=== PATIENT | female | born 1930 | race Caucasian/White ===

== ENCOUNTER 2016-07-23 09:53 | Inpatient (IN) | payer OTHER ==
[~2016-07-23] VITALS: Ht 162.6 cm; Wt 58.0 kg
[~2016-07-23 09:53] MED LIST: ALBINS INH; ALBUAER19 INH; CLON1TAB3 PO; DSY50 PO; FLUT110A INH; LEVO100T PO; LVQ500 PO; PRED-301 PO; SIMV40TA2 PO; SPRIN INH
[2016-07-23] MEDS ORDERED: HYDROCODONE/ACETAMOPHEN 5/325MG TAB PO STA (10:33)
[2016-07-23] MEDS ORDERED: AMPICILLIN/SULBACTAM SOD INJ 3,000 MG in SODIUM CHLORIDE 0.9% 100ML 100 ML IV ONE (10:45)
[2016-07-23] MEDS ORDERED: ALPR-411 PO (10:49)
[2016-07-23] MEDS ORDERED: PARO30TA4 PO (10:49)
--- NOTE | 2016-07-23 11:04 | DIAGNOSTIC IMAGING REPORT ---
WRIST MIN 3 VIEWS ROUTINE CLINICAL HISTORY: Right wrist pain. Cat bite. COMPARISON: None. DISCUSSION: The bones are osteopenic. No fractures or dislocations are visualized. No destructive lesions are visualized. There is dorsal soft tissue swelling. No foreign bodies are visualized. IMPRESSION: Dorsal soft tissue swelling. No fractures or destructive lesions are visualized. No radiopaque foreign bodies are evident Electronically signed by: Kong Patel M.D. 07/23/2016 11:02 AM
--- NOTE | 2016-07-23 11:53 | EMERGENCY ROOM VISIT NOTE ---
ED Visit Note First contact with patient: 10:24 I have personally seen and evaluated the patient with the physician mortgage loan assistant. I agree with the diagnostic/management decisions and have personally been involved in these decisions and agree with the diagnosis.
--- NOTE | 2016-07-23 12:13 | EMERGENCY ROOM VISIT NOTE ---
ED Visit Note First contact with patient: 10:24 CHIEF COMPLAINT: Infected cat bite of the right wrist that occurred last evening HISTORY OF PRESENT ILLNESS: Patient is an 85-year-old white female who presents to emergency department by BLS ambulance for evaluation of a cat bite to her right wrist that she sustained last evening. She was bitten by her own indoor house cat around 8 PM last night. She states that she cleansed the area with soap and water and applied Neosporin. She began to notice increased pain, redness and swelling overnight. The throbbing kept her awake. She reports a history of a similar cat bite in November of this year which required hospitalization. She responded to IV antibiotics and did not require surgery. She has not had a fever. She denies any drainage or discharge from the area. She reports that her tetanus is up-to-date, and the cat's rabies vaccinations are current. She rates her discomfort a 4/10. REVIEW OF SYSTEMS: Review of systems as per HPI. All other systems reviewed were negative. 10 systems reviewed. PMH: Electronic medical records are reviewed and summarized as above/below. See Problem List. SOCIAL HISTORY: Patient living at home. PHYSICAL EXAM: Vital Signs: Reviewed Nurse's notes. CONSTITUTIONAL: Patient is an elderly 85-year-old white female who was awake and alert and resting on the gurney in no acute distress. She is on nasal cannula oxygen. HEART: Regular rate and rhythm. LUNGS: Breath sounds are diminished, but clear to auscultation without any adventitious sounds. EXTREMITIES: Examination of the right wrist show 2 scabbed over puncture wounds on the dorsal aspect of the wrist. She has circumferential soft tissue swelling , erythema and increased warmth noted over the wrist, extending into the hand to the MCP joints, and swelling extending to the mid forearm. She has lymphangitic streaking noted to the elbow. Her wrist is tender to palpation. She can wiggle and move her fingers, but has pain in her breast. She has discomfort with wrist range of motion. Capillary refills less than 2 seconds. Radial and ulnar pulses are easily palpable. Sensation light touch is intact. EMERGENCY DEPARTMENT COURSE: X-rays of the right wrist were obtained. Patient was given [place] one tablet orally for pain. IV access was obtained and she was given Unasyn 3 g IV. X-rays showed soft tissue swelling. No evidence for acute bony abnormality. On exam, her findings are more consistent with cellulitis, and inflammation and local irritation from the cat bite, rather than a septic joint or drainable abscess. She does not have exam findings consistent with infectious tenosynovitis. Initially, the patient had expressed that she wanted to go home on oral medications, however after reviewing her findings with her, she preferred to stay in the hospital for further IV antibiotics, particularly given her poor outcome earlier this year. Patient was reviewed with the validation manager, and discussed with the [facility] service for further care and management. WRIST MIN 3 VIEWS ROUTINE CLINICAL HISTORY: Right wrist pain. Cat bite. COMPARISON: None. DISCUSSION: The bones are osteopenic. No fractures or dislocations are visualized. No destructive lesions are visualized. There is dorsal soft tissue swelling. No foreign bodies are visualized. IMPRESSION: Dorsal soft tissue swelling. No fractures or destructive lesions are visualized. No radiopaque foreign bodies are evident Problem List Medical Problems: (1) Anemia Status: Resolved (2) Cholelithiasis Status: Chronic (3) CKD (chronic kidney disease), stage III Status: Chronic (4) COPD, moderate Permanent Comment: on 2L O2 Status: Chronic (5) Depression Status: Chronic (6) DM type 2 (diabetes mellitus, type 2) Permanent Comment: A1C 5.9 in 06/2014 Status: Chronic (7) Dyslipidemia Status: Chronic (8) Generalized anxiety disorder Status: Chronic (9) History of renal stone Status: Chronic (10) Hypothyroidism Status: Chronic (11) Neutropenic fever Status: Resolved (12) Osteoporosis Status: Chronic (13) Pancytopenia Permanent Comment: ? secondary to myelo dysplastic syndrome Status: Chronic (14) Raynauds syndrome Status: Chronic (15) SIRS (systemic inflammatory response syndrome) Status: Resolved (16) Tobacco abuse Status: Chronic (17) Vitamin D deficiency Status: Chronic Surgical Problems: (1) History of cataract surgery Status: Resolved (2) History of open reduction and internal fixation (ORIF) procedure Permanent Comment: ORIF left humerus fracture 2010 Status: Resolved (3) History of parotid gland removal Permanent Comment: 2010, benign Status: Resolved (4) Hx of tubal ligation Status: Resolved Current/Historical Medications Scheduled Alprazolam (Alprazolam), 1 TAB PO TID Aspirin (Aspirin EC Low Dose), 81 MG PO DAILY Levothyroxine Sodium (Synthroid), 100 MCG PO DAILY Multiple Vitamin (Multivitamin), 1 TAB PO DAILY Paroxetine (Paroxetine HCl), 1 TAB PO DAILY Prednisone (Prednisone), 5 MG PO DAILY Simvastatin (Zocor), 40 MG PO QPM Tiotropium [place] (Spiriva Handihaler), 18 MCG INH DAILY Trazodone Hcl (Desyrel *), 50 MG PO HS Scheduled PRN Albuterol Inhaler (Ventolin Inhaler), 2 PUFFS INH BID PRN for SOB/Wheezing Albuterol Sulf (Albuterol Sulfate), 1 DOSE INH Q4 PRN for Wheezing Allergies Coded Allergies: Niacin (Verified Allergy, Unknown, 07/23/16) Vital Signs Date Time Temp Pulse Resp B/P Pulse Ox O2 Delivery O2 Flow Rate FiO2 07/23/16 12:38 67 20 112/52 95 Nasal Cannula 2.0 07/23/16 10:01 36.8 86 20 125/66 93 Nasal Cannula 2.0 Medications Administered Medications (Trade) Dose Ordered Sig/Kathryn Route Start Time Stop Time Status Last Admin Dose Admin Ampicillin Sodium/ Sulbactam Sodium/ Sodium Chloride (Unasyn Inj/Nss 100ml) 108 ml @ 200 mls/hr ONE ONCE IV 07/23/16 10:45 07/23/16 11:17 DC 07/23/16 11:13 200 MLS/HR Acetaminophen/ Hydrocodone Bitart ([place] 5/325 Tab) 1 tab NOW STAT PO 07/23/16 10:33 07/23/16 10:37 DC 07/23/16 10:43 1 TAB Departure Information Impression Primary Impression: Cellulitis of right arm Additional Impression: Cat bite involving extremity Referrals Christiano Howell M.D. (PCP) Patient Instructions A Signature Page, My [facility]
[2016-07-23] MEDS ORDERED: ONDANSETRON INJ 2 MG/ML 2 ML VIAL IV PRN (13:15)
[2016-07-23] MEDS ORDERED: ACETAMINOPHEN 325 MG TAB PO PRN (13:15)
[2016-07-23] MEDS ORDERED: SPRIN INH (13:23)
[2016-07-23] MEDS ORDERED: NICOTINE 14 MG/24 HR TDSY TD ONE (13:32)
[2016-07-23] MEDS ORDERED: MULTTAB58 PO (13:43)
[2016-07-23] MEDS ORDERED: ALBUTEROL 0.083% NEBU SOLN 3 ML VIAL INH STA (13:43)
[2016-07-23] MEDS ORDERED: ASPEC81 PO (13:43)
[2016-07-23] MEDS ORDERED: ALBUTEROL HFA 8 GM INHALER INH PRN (13:45)
[2016-07-23] MEDS ORDERED: ALBUTEROL 0.083% NEBU SOLN 3 ML VIAL INH PRN (13:45)
[2016-07-23 13:55] VITALS: Ht 162.6 cm; Wt 58.0 kg
[2016-07-23] MEDS: ALPRAZOLAM 0.5 MG TAB PO SCH ×2 (13:59→18:39)
--- NOTE | 2016-07-23 14:21 | History and Physical ---
History & Physical Date & Time of Service: Jul 23, 2016 at 13:26 Chief Complaint: Cat Bite/ Rt Wrist Primary Care Physician: Christiano Howell M.D. History of Present Illness Source: patient This is an 85 y/o female with PMH of myelodysplastic syndrome, DM type 2 diet controlled, COPD on home oxygen HS, current smoker, and other problems listed below who presents to the ED s/p cat bite. Patient reports cat bite occurred yesterday evening. She washed it with soap and water and applied Neosporin. Then overnight she developed pain, swelling, and erythema of the right wrist and dorsal hand. Pain is rated 10/10. She states [place] helped minimally but still having severe pain. Pain worsens with ROM of the wrist. The lesions have scabbed and there is no open area/drainage. No fevers or chills. No numbness or weakness of RUE. She is feeling generally weak today. She ambulates with a walker at home. Denies worsening of chronic cough productive of clear sputum. Patient was SOB ambulating to the restroom in ER. Denies worsening SOB/ wheezing from baseline. No chest pain, GI or urinary symptoms. Past Medical/Surgical History Medical Problems: (1) Anemia Status: Resolved (2) Cholelithiasis Status: Chronic (3) CKD (chronic kidney disease), stage III Status: Chronic (4) COPD, moderate Permanent Comment: on 2L O2 Status: Chronic (5) Depression Status: Chronic (6) DM type 2 (diabetes mellitus, type 2) Permanent Comment: A1C 5.9 in 06/2014 Status: Chronic (7) Dyslipidemia Status: Chronic (8) Generalized anxiety disorder Status: Chronic (9) History of renal stone Status: Chronic (10) Hypothyroidism Status: Chronic (11) Neutropenic fever Status: Resolved (12) Osteoporosis Status: Chronic (13) Pancytopenia Permanent Comment: ? secondary to myelo dysplastic syndrome Status: Chronic (14) Raynauds syndrome Status: Chronic (15) SIRS (systemic inflammatory response syndrome) Status: Resolved (16) Tobacco abuse Status: Chronic (17) Vitamin D deficiency Status: Chronic Surgical Problems: (1) History of cataract surgery Status: Resolved (2) History of open reduction and internal fixation (ORIF) procedure Permanent Comment: ORIF left humerus fracture 2010 Status: Resolved (3) History of parotid gland removal Permanent Comment: 2011, benign Status: Resolved (4) Hx of tubal ligation Status: Resolved Family History Heart disease FATHER Stroke MOTHER Social History Smoking Status: Current Every Day Smoker (1/2 ppd. smoking cessation advised. ) Alcohol Use: none Marital Status: Housing status: lives with family (with son) Occupational Status: retired Immunizations History of Influenza Vaccine: Yes Influenza Vaccine Date: Apr 18, 2014 History of Tetanus Vaccine?: Yes Tetanus Immunization Date: December 09, 2004 History of Pneumococcal: Yes Pneumococcal Date: Jul 07, 2014 History of Hepatitis B Vaccine: No Multi-Drug Resistant Organisms History of MDRO: No Allergies Coded Allergies: Niacin (Verified Allergy, Unknown, 07/23/16) Home Medications Scheduled Alprazolam (Alprazolam), 1 TAB PO TID Aspirin (Aspirin EC Low Dose), 81 MG PO DAILY Levothyroxine Sodium (Synthroid), 100 MCG PO DAILY Multiple Vitamin (Multivitamin), 1 TAB PO DAILY Paroxetine (Paroxetine HCl), 1 TAB PO DAILY Prednisone (Prednisone), 5 MG PO DAILY Simvastatin (Zocor), 40 MG PO QPM Tiotropium [place] (Spiriva Handihaler), 18 MCG INH DAILY Trazodone Hcl (Desyrel *), 50 MG PO HS Scheduled PRN Albuterol Inhaler (Ventolin Inhaler), 2 PUFFS INH BID PRN for SOB/Wheezing Albuterol Sulf (Albuterol Sulfate), 1 DOSE INH Q4 PRN for Wheezing Review of Systems Constitutional: + weakness (generalized), No chills, No fever ENT: No nasal symptoms Respiratory: + cough (no change from baseline), + problem reported (+ dyspnea on ambulating to restroom. denies worsening dyspnea/ wheezing from baseline), + sputum (clear) Cardiovascular: No chest pain Abdomen: No diarrhea, No nausea, No pain, No vomiting Musculoskeletal: + joint pain (right wrist pain with ROM) Genitourinary - Female: No dysuria, No urinary frequency, No urinary urgency Neurologic: + problem reported (no focal weakness of RUE), No numbness/tingling Psychiatric: + anxiety (controlled with alprazolam ) Hematologic / Lymphatic: + abnormal bleeding/bruising (bruises easily- scattered bruising spontaneous- denies trauma. denies abnormal bleeding including epistaxis, gum bleeding, GI bleeding) Integumentary: + color change, + new/changing skin lesions Physical Exam Vital Signs Date Time Temp Pulse Resp B/P Pulse Ox O2 Delivery O2 Flow Rate FiO2 07/23/16 12:38 67 20 112/52 95 Nasal Cannula 2.0 07/23/16 10:01 36.8 86 20 125/66 93 Nasal Cannula 2.0 General Appearance: WD/WN, no apparent distress, + pertinent finding (acutely ill appearing 85 year old female) Head: normocephalic, atraumatic Eyes: normal inspection, PERRL, EOMI ENT: pharynx normal, + pertinent finding (hard of hearing) Neck: supple Respiratory/Chest: no respiratory distress, no accessory muscle use, + pertinent finding (moderate wheezing present throughout) Cardiovascular: regular rate, rhythm, no murmur Abdomen/GI: normal bowel sounds, non tender, soft Extremities/Musculoskelatal: no pedal edema, + pertinent finding (right wrist joint is swollen, tender and limited ROM due to pain. MCP and PCP joints nontender and ROM intact.) Neurologic/Psych: alert, normal mood/affect, oriented x 3, + pertinent finding (generally weak but no motor deficit on gross exam) Skin: warm/dry, + pertinent finding (2 scabbed punctate lesions on dorsal aspect of right wrist. no drainage. + erythema, warmth, swelling, and tenderness of dorsal wrist and dorsal hand. has streaking up the forearm. no fluctuant area. also has scattered ecchymosis noted on left upper chest and bilateral LE) Diagnostics Laboratory Results Results Past 24 Hours Test 07/23/16 12:27 Range/Units Microbiology Results 07/23/16 Blood Culture, Paramjit Batch Pending 07/23/16 Blood Culture, Paramjit Batch Pending Diagnostic Radiology WRIST MIN 3 VIEWS ROUTINE CLINICAL HISTORY: Right wrist pain. Cat bite. COMPARISON: None. DISCUSSION: The bones are osteopenic. No fractures or dislocations are visualized. No destructive lesions are visualized. There is dorsal soft tissue swelling. No foreign bodies are visualized. IMPRESSION: Dorsal soft tissue swelling. No fractures or destructive lesions are visualized. No radiopaque foreign bodies are evident Impression Assessment and Plan RIGHT UPPER EXTREMITY CELLULITIS S/P CAT BITE 07/12/2016 Afebrile, no tachycardia, no hypotension; + leukopenia (chronic- was 2.67 on recent OP labs -> 1.73 today), + thrombocytopenia (chronic- plt 42 as OP -> 31 today); + CRP elevated Has underlying DM 2- diet controlled with last A1c 5.9 on 12/22/2015 Right wrist x-ray- Dorsal soft tissue swelling. No fractures or destructive lesions are visualized. No radiopaque foreign bodies are evident Check blood cultures; no open area or drainage for wound culture Received empiric Unasyn in ER- will continue Concern for wrist joint involvement- Dr. Perales consulted and saw her in ER; appreciate input; will obtain MRI and continue antibiotics; if needs washout pending MRI results would be done tomorrow morning or Monday Pain control with PRN morphine and elevate extremity COPD/ CHRONIC RESPIRATORY FAILURE Has wheezing on exam; was borderline hypoxic to 90 on her usual 2 liters once on floor Will check CXR to r/o pneumonia Continue chronic prednisone and chronic supplemental O2 Duoneb treatments Continue Spiriva PANCYTOPENIA/ MYELODYSPLASTIC SYNDROME S/p bone marrow biopsy Follows with Dr. Farrell WBC 2.67 on recent OP labs -> 1.73 today), platelets 42 as OP -> 31 today); neutrophils 0.87- similarly low in Dec-January 2016 when admitted for neutropenic fever & received Neupogen Monitor CBC CHRONIC THROMBOCYTOPENIA Platelet count 40s on last outpatient labs early June; platelets 31 today Denies bleeding Avoid anticoagulants DM TYPE 2 Diet controlled with last A1c 5.9 on 12/22/2015; will update A1c in am Monitor BSG AC HS Diabetic diet CKD STAGE III Baseline Cr 1.3 PRP pending ANXIETY Continue alprazolam HYPOTHYROIDISM Continue levothyroxine DYSLIPIDEMIA Continue statin CHRONIC SMOKER Cessation advised Nicotine patch ordered DVT PROPHYLAXIS SCD's No anticoagulant due to chronic thrombocytopenia DISPOSITION Med/ surg admission. PT/ OT consulted for generalized weakness. Follows with Dr. Howell for primary care. Attending Addendum: I have evaluated the patient and agree with the note above. A CXR did not reveal any active disease. Clinically, I feel she is at her baseline COPD status, on home oxygen with no increase in coughing, dyspnea or sputum change. She will cont her home prednisone dose, Duonebs as inpatient and home oxygen. Her right wrist is causing her significant discomfort and anxiety. She is requiring high doses of morphine for her body weight. She initially declined the MRI and then underwent it with TLC from the nursing staff and some Xanax. MRI was revealing for fluid in the joint space and no osteomyelitis. Per Ortho surgeon's instructions, will make her NPO p MN for possible procedure in AM. Cont broad spectrum abx at this time. Line drawn around redness which has not extended for several hours. Pt is not septic at this time. Cont to monitor closely. Sri Garcia DO Hospitalist Level of Care Med/Surg Advanced Directives Existing Advance Directive: Yes Resuscitation Status DO NOT RESUSCITATE VTE Prophylaxis VTE Risk Assessment Done? Y/N: Yes Risk Level: High Given or contraindicated: SCD's, Contraindicated
[2016-07-23 15:00] VITALS: BP 106/66; PULSE 78; TEMP 37.3; O2SAT 95
[2016-07-23] MEDS: MoRPHine SULFATE 2 MG/ML CARP IV PRN ×2 (15:27→20:45)
[2016-07-23 15:33] LABS: BUN/CREATININE RATIO 16.4 (10-20); C-REACTIVE PROTEIN 4.82 mg/dl (0-0.29); CALCIUM 8.3 mg/dl (8.5-10.1); MAGNESIUM 1.8 mg/dl (1.8-2.4); POTASSIUM 4.5 mmol/L (3.5-5.1)
[2016-07-23 15:36] LABS: HEMATOCRIT 30.7 % (37-47); MEAN CORPUSCULAR HEMOGLOBIN 35.9 pg (25-34); MEAN CORPUSCULAR HGB CONC 33.6 g/dl (32-36); MEAN PLATELET VOLUME 10.7 fL (7.4-10.4); PLATELET COUNT 31 K/uL (130-400); RED BLOOD COUNT 2.87 M/uL (4.2-5.4); WHITE BLOOD COUNT 1.73 K/uL (4.8-10.8)
[2016-07-23] MEDS ORDERED: AMPICILLIN/SULBACTAM CONSULT ACTIVE PRN ×2 (15:47)
[2016-07-23 15:49] LABS: COMPLETE YES; EOS % 1.2 %; LYMPH % 47.4 %; LYMPH ABS # 0.82 K/uL (1.2-3.4); MONO % 1.2 %; NEUT % 50.2 %; OVALOCYTES 2+
[2016-07-23] MEDS: ALBUT/IPRATROP 3MG/0.5MG NEB 3 ML VIAL INH SCH ×2 (16:00→20:12)
[2016-07-23 16:42] VITALS: PULSE 81; O2SAT 90
[2016-07-23] MEDS ORDERED: MoRPHine SULFATE 4 MG/ML 1 ML CARP\\VIAL IV STA (16:59)
[2016-07-23] MEDS: AMPICILLIN/SULBACTAM SOD INJ 3,000 MG in SODIUM CHLORIDE 0.9% 100ML 100 ML IV SCH ×2 (17:40→23:50)
--- NOTE | 2016-07-23 18:00 | DIAGNOSTIC IMAGING REPORT ---
CHEST ONE VIEW PORTABLE CLINICAL HISTORY: wheezing and rhonci in patient with COPD on home oxygen COMPARISON STUDY: 02/03/2016 FINDINGS: The cardiac and mediastinal contours are normal. There is no evidence of focal pulmonary consolidation. There is no evidence of failure. No pleural effusions are visualized.[ The chest has an emphysematous configuration. There are postsurgical changes involving the left humerus. IMPRESSION: No active disease in the chest. Electronically signed by: Kong Patel M.D. 07/23/2016 5:58 PM
--- NOTE | 2016-07-23 20:07 | DIAGNOSTIC IMAGING REPORT ---
MRI OF THE RIGHT WRIST NO CONTRAST CLINICAL HISTORY: Cellulitis status post cat bite. Evaluate for abscess COMPARISON STUDY: Conventional radiographic study dated 07/23/2016 FINDINGS: Imaging was performed in the sagittal, axial, and coronal planes. There are no areas of marrow edema to indicate occult fracture, or osteomyelitis. There is a very small joint effusion. There is extensive soft tissue edema, most pronounced dorsally. There are no walled off fluid collections to indicate an abscess. There is fluid within the extensor digitorum and indices tendon sheath. There is trace fluid within the extensor carpi radialis brevis and longus tendon sheath.. IMPRESSION: 1. No evidence of osteomyelitis 2. Extensive soft tissue edema, most pronounced dorsally. 3. Tenosynovitis involving the extensor digitorum and indices tendon sheath. There is also trace fluid within the extensor carpi ulnaris brevis and longus tendon sheath. It is not possible to determine whether this fluid is sterile or infected. 4. No evidence of soft tissue abscess Electronically signed by: Kong Patel M.D. 07/23/2016 8:05 PM
[2016-07-23 20:13] VITALS: PULSE 81; O2SAT 92
[2016-07-23] MEDS: TRAZODONE HCL 50 MG TAB PO SCH (20:42)
[2016-07-23] MEDS: SIMVASTATIN 40 MG TAB PO SCH (20:42)
[2016-07-23 23:12] VITALS: BP 100/63; PULSE 89; TEMP 36.9; O2SAT 93
[2016-07-24] VITALS (8 sets, daily range): BP systolic 103–112; BP diastolic 64–68; PULSE 78–92; TEMP 36.6–36.7; O2SAT 93–95
[2016-07-24] MEDS: AMPICILLIN/SULBACTAM SOD INJ 3,000 MG in SODIUM CHLORIDE 0.9% 100ML 100 ML IV SCH ×3 (05:33→17:59)
[2016-07-24] MEDS: LEVOTHYROXINE 100 MCG TAB PO SCH (05:34)
--- NOTE | 2016-07-24 06:15 | ORTHOPEDIC CONSULTATION ---
DATE OF CONSULTATION: 07/23/2016 ORTHOPEDIC SURGERY CONSULTATION Special attention to right wrist infection, status post cat bite. HISTORY OF PRESENT ILLNESS: This is an 85-year-old female who is in the process of being admitted to the hospitalist service after right hand cat bite. She sustained a cat bite yesterday. She notes increased pain and swelling in the right wrist region. PAST MEDICAL HISTORY: Myelodysplastic syndrome; type 2 diabetes; COPD, on home oxygen; stage III kidney disease; generalized anxiety disorder. SOCIAL HISTORY: Smokes a half a pack a day. MEDICATIONS: Alprazolam, paroxetine, prednisone, Zocor, Spiriva inhaler, levothyroxine, aspirin 81 mg. Three views of the right wrist shows dorsal soft tissue swelling, no evidence of gross osteomyelitic lesion, osteopenia seen in the bones. Right wrist examination of the patient exhibits 2 puncture wounds, 1 over the radial aspect in the region of the first dorsal extensor compartment and another one in the mid aspect of the dorsal wrist. These are markedly tender to palpation and the wrist is globally tender. We did not detect any gross fluctuance. She has pain with range of motion of the wrist. She has negative [place] spine. I do not detect any fluctuance or abscess formation at this point in time. ASSESSMENT: Right hand cat bite with cellulitis, rule out septic joint. PLAN: At this point in time, I feel it is reasonable to proceed with MRI for evaluation to see if she has any evidence of abscess or septic joint. I would agree with admission and intravenous antibiotics. We will follow her clinical course. Should she need irrigation, debridement and arthrotomy of septic joint, we will do so and at this point, we will proceed with MRI prior to making any surgical determination.
[2016-07-24 06:32] LABS: BUN/CREATININE RATIO 14.8 (10-20); CALCIUM 8.2 mg/dl (8.5-10.1); CREATININE 0.99 mg/dl (0.60-1.20); MAGNESIUM 1.9 mg/dl (1.8-2.4); POTASSIUM 4.2 mmol/L (3.5-5.1)
[2016-07-24 06:34] LABS: HEMATOCRIT 31.7 % (37-47); MEAN CELL VOLUME 107.8 fL (80-100); MEAN CORPUSCULAR HEMOGLOBIN 35.4 pg (25-34); MEAN CORPUSCULAR HGB CONC 32.8 g/dl (32-36); MEAN PLATELET VOLUME 11.4 fL (7.4-10.4); PLATELET COUNT 28 K/uL (130-400); RED BLOOD COUNT 2.94 M/uL (4.2-5.4); WHITE BLOOD COUNT 1.77 K/uL (4.8-10.8)
[2016-07-24 06:36] LABS: COMPLETE YES; EOS % 1.1 %; LYMPH ABS # 0.85 K/uL (1.2-3.4); MICROCYTOSIS PRESENT; MONO % 1.1 %; NEUT % 49.8 %; OVALOCYTES 1+; PLT ESTIMATE SIGNIFIC DECREASED
[2016-07-24] MEDS: ALBUT/IPRATROP 3MG/0.5MG NEB 3 ML VIAL INH SCH ×4 (07:52→19:37)
--- NOTE | 2016-07-24 08:38 | PROGRESS NOTE ---
DATE: 07/24/2016 SUBJECTIVE: Anum seen at the bedside today. She states her wrists feels better today than yesterday. She denies any other complaints. OBJECTIVE: Right wrist exam shows no evidence of fluctuance. She has no evidence of drainage. She has decrease erythema compared to yesterday. She has edema over the dorsal aspect of the hand, but no localized area of fluid collection. She has minimal pain with range of motion of the wrist. She has minimal pain with range of motion of the digits. She has mild to moderate tenderness over the dorsal aspect of the wrist. ASSESSMENT: Status post cat bite, cellulitis, possible extensor tenosynovitis. PLAN: At this point in time, will continue antibiotics. At this point in time, I would recommend continued nonoperative treatment, if she does have improvement with antibiotics. We will continue antibiotics. No surgical indications today. We will continue to follow her. The MRI is reviewed today, does not show any evidence of septic joint or osteomyelitis or abscess.
[2016-07-24] MEDS ORDERED: ASPIRIN 81 MG ECTAB PO SCH (09:00)
[2016-07-24] MEDS: NICOTINE 14 MG/24 HR TDSY TD SCH (09:17)
[2016-07-24] MEDS: TIOTROPIUM BROMIDE 5 PUFF/90 MCG INH INH SCH (09:17)
[2016-07-24] MEDS: PAROXETINE 30 MG TAB PO SCH (09:17)
[2016-07-24] MEDS: MULTIVITAMIN TAB PO SCH (09:17)
[2016-07-24] MEDS: ALPRAZOLAM 0.5 MG TAB PO SCH ×3 (09:19→21:12)
--- NOTE | 2016-07-24 09:57 | Progress Note ---
Medicine Progress Note Date & Time of Visit: Jul 24, 2016 at 09:46. Subjective 85 yo F with cat bite to R wrist yesterday no fevers/chills overnight pain is improved tolerating ADA diet asking to go home but understands why she has to stay denies increased work of breathing, increased coughing or change in normal sputum production. Objective Last 8 Hrs Date Time Temp Pulse Resp B/P Pulse Ox O2 Delivery O2 Flow Rate FiO2 07/24/16 07:52 78 20 94 Nasal Cannula 3.0 07/24/16 07:30 36.6 81 16 112/64 93 Nasal Cannula 3.0 Physical Exam: GEN: elderly, frail, in no acute distress, alert and appropriate HEENT: NC/AT, normal sclerae CARDIO: reg rate, S1/2 heard without m/g/r LUNGS: wheezing throughout all lung torres ABD: soft, non-tender, non-distended, no rebound or guarding EXTREMITY: R wrist-dorsal erythema improved significantly, swelling has improved , ROM improved with limitation in flexion/extension of r wrist, pt can make a loose fist, two scabs puncture wounds present on RUE, wwp, no edema NEURO: no gross focal deficits MUSC: no gross focal deficits SKIN: warm and dry Laboratory Results: Last 24 Hours Test 07/23/16 14:45 07/23/16 16:39 07/23/16 20:36 07/24/16 05:40 White Blood Count 1.73 K/uL 1.77 K/uL Red Blood Count 2.87 M/uL 2.94 M/uL Hemoglobin 10.3 g/dL 10.4 g/dL Hematocrit 30.7 % 31.7 % Mean Corpuscular Volume 107.0 fL 107.8 fL Mean Corpuscular Hemoglobin 35.9 pg 35.4 pg Mean Corpuscular Hemoglobin Concent 33.6 g/dl 32.8 g/dl Platelet Count 31 K/uL 28 K/uL Mean Platelet Volume 10.7 fL 11.4 fL Neutrophils (%) (Auto) 50.2 % 49.8 % Lymphocytes (%) (Auto) 47.4 % 48.0 % Monocytes (%) (Auto) 1.2 % 1.1 % Eosinophils (%) (Auto) 1.2 % 1.1 % Basophils (%) (Auto) 0.0 % 0.0 % Neutrophils # (Auto) 0.87 K/uL 0.88 K/uL Lymphocytes # (Auto) 0.82 K/uL 0.85 K/uL Monocytes # (Auto) 0.02 K/uL 0.02 K/uL Eosinophils # (Auto) 0.02 K/uL 0.02 K/uL Basophils # (Auto) 0.00 K/uL 0.00 K/uL RDW Standard Deviation 52.6 fL 54.0 fL RDW Coefficient of Variation 13.3 % 13.5 % Immature Granulocyte % (Auto) 0.0 % 0.0 % Immature Granulocyte # (Auto) 0.00 K/uL 0.00 K/uL Macrocytosis PRESENT Ovalocytes 2+ 1+ Erythrocyte Sedimentation Rate 3 mm/hr Sodium Level 140 mmol/L 141 mmol/L Potassium Level 4.5 mmol/L 4.2 mmol/L Chloride Level 106 mmol/L 105 mmol/L Carbon Dioxide Level 26 mmol/L 27 mmol/L Anion Gap 8.0 mmol/L 9.0 mmol/L Blood Urea Nitrogen 16 mg/dl 15 mg/dl Creatinine 1.00 mg/dl 0.99 mg/dl Est Creatinine Clear Calc Drug Dose 36.2 ml/min 36.6 ml/min Estimated GFR () 59.9 60.6 Estimated GFR (Non- 51.7 52.3 BUN/Creatinine Ratio 16.4 14.8 Random Glucose 113 mg/dl 94 mg/dl Calcium Level 8.3 mg/dl 8.2 mg/dl Magnesium Level 1.8 mg/dl 1.9 mg/dl C-Reactive Protein 4.82 mg/dl Bedside Glucose 111 mg/dl 105 mg/dl Platelet Estimate SIGNIFIC DECREASED Microcytosis PRESENT Date/Time Source Procedure Growth Status 07/23/16 14:50 Blood Blood Culture Pending Received 07/23/16 14:45 Blood Blood Culture Pending Received Assessment & Plan RIGHT UPPER EXTREMITY CELLULITIS S/P CAT BITE 07/12/2016: Afebrile overnight with significant improvement in redness and some improvement in ROM of the wrist --still limited in flexion and extension mostly. Cont Unasyn, management non- operatively per Ortho. Pain control PRN-requiring less PRN overnight. Blood cultures are still pending. COPD/ CHRONIC RESPIRATORY FAILURE-ACUTE EXACERBATION-some worsening of hypoxia and wheezing. Coughing and sputum production at baseline, however, I don't trust her history. Will increase steroids and add azithro to cover for atypical orgs not covered by Unasyn. Will screen for flu. Cont nir PANCYTOPENIA/ MYELODYSPLASTIC SYNDROME: S/p bone marrow biopsy Follows with Dr. Farrell Afebrile Monitor CBC-stable at this time CHRONIC THROMBOCYTOPENIA Platelet count 40s on last outpatient labs early June; platelets 31 today Denies bleeding Avoid anticoagulants DM TYPE 2 Diet controlled with last A1c 5.9 on 12/22/2015; will update A1c in am Monitor BSG AC HS Diabetic diet CKD STAGE III Baseline Cr 1.3 Improved today to normal ANXIETY Continue alprazolam HYPOTHYROIDISM Continue levothyroxine DYSLIPIDEMIA Continue statin CHRONIC SMOKER Cessation advised Nicotine patch ordered DVT PROPHYLAXIS SCD's No anticoagulant due to chronic thrombocytopenia DISPOSITION: cont med/surg floor, PT/OT evals daily-lives with two sons at home. Sri Garcia DO [facility] Hospitalist Current Inpatient Medications: Current Inpatient Medications Medications (Trade) Dose Ordered Sig/Kathryn Route Start Time Stop Time Status Last Admin Dose Admin Acetaminophen (Tylenol Tab) 650 mg Q4H PRN PO 07/23/16 13:15 08/22/16 13:14 07/24/16 04:42 650 MG Ondansetron HCl (Zofran Inj) 4 mg Q6H PRN IV 07/23/16 13:15 08/22/16 13:14 Morphine Sulfate (MoRPHine SULFATE INJ) 2 mg Q4H PRN IV 07/23/16 13:30 08/06/16 13:29 07/23/16 20:45 2 MG Nicotine (Nicoderm Cq 14MG Patch) 1 patch QAM TD 07/24/16 09:00 08/23/16 08:59 07/24/16 09:17 1 PATCH Miscellaneous (Remove Nicoderm Patch) 1 ea HS N/A 07/23/16 21:00 08/22/16 20:59 07/23/16 18:45 1 EA Albuterol (Ventolin Hfa Inhaler) 2 puffs BID PRN INH 07/23/16 13:45 08/22/16 13:44 Alprazolam (Xanax Tab) 0.5 mg TID PO 07/23/16 14:00 08/22/16 13:59 07/24/16 09:19 0.5 MG Aspirin (Ecotrin Tab) 81 mg DAILY PO 07/24/16 09:00 08/23/16 08:59 07/24/16 09:17 81 MG Levothyroxine Sodium (Synthroid Tab) 100 mcg DAILYBB PO 07/24/16 06:00 08/23/16 05:59 07/24/16 05:34 100 MCG Multivitamins (Multivitamin Tab) 1 tab DAILY PO 07/24/16 09:00 08/23/16 08:59 07/24/16 09:17 1 TAB Prednisone (PredniSONE TAB) 5 mg DAILY PO 07/24/16 09:00 08/23/16 08:59 07/24/16 09:17 5 MG Simvastatin (Zocor Tab) 40 mg QPM PO 07/23/16 21:00 08/22/16 20:59 07/23/16 20:42 40 MG Tiotropium [place] (Spiriva Handihaler Inhaler) 1 puff DAILY INH 07/24/16 09:00 08/23/16 08:59 07/24/16 09:17 1 PUFF Trazodone HCl (Desyrel Tab) 50 mg HS PO 07/23/16 21:00 08/22/16 20:59 07/23/16 20:42 50 MG Paroxetine HCl (pAXil) 30 mg DAILY PO 07/24/16 09:00 08/23/16 08:59 07/24/16 09:17 30 MG Albuterol/ Ipratropium (Duoneb) 3 ml QIDR INH 07/23/16 16:00 08/22/16 15:59 07/24/16 07:52 3 ML Ampicillin Sodium/ Sulbactam Sodium 1 ea 1 ea UD PRN N/A 07/23/16 15:47 08/22/16 15:46 Ampicillin Sodium/ Sulbactam Sodium/ Sodium Chloride (Unasyn Inj/Nss 100ml) 108 ml @ 216 mls/hr Q6H IV 07/23/16 18:00 08/02/16 17:59 07/24/16 05:33 216 MLS/HR
[2016-07-24] MEDS: AZITHROMYCIN IV 500 MG in DEXTROSE 5% 250ML 250 ML IV SCH (11:03)
[2016-07-24] MEDS: METHYLPREDNISOLONE IV 40 MG in SYRINGE 0 ML IV SCH ×2 (11:04→17:59)
[2016-07-24 14:38] LABS: INFLUENZA A PCR Neg for Influ A (NEG); INFLUENZA B PCR Neg for Influ B (NEG)
[2016-07-24] MEDS: SIMVASTATIN 40 MG TAB PO SCH (21:12)
[2016-07-24] MEDS: TRAZODONE HCL 50 MG TAB PO SCH (21:12)
[2016-07-24] MEDS ORDERED: DEXTROSE 50% 50 ML SYR IV PRN (22:15)
[2016-07-24] MEDS ORDERED: GLUCOSE 10 TABS/TUBE PO PRN (22:15)
[2016-07-24] MEDS ORDERED: GLUCOSE 40% GEL 15 GM TUBE PO PRN (22:15)
[2016-07-24] MEDS ORDERED: GLUCAGON FOR INJ 1 MG VIAL SQ PRN (22:15)
[2016-07-25] VITALS (9 sets, daily range): BP systolic 107–126; BP diastolic 66–73; PULSE 78–106; TEMP 36.3–36.7; O2SAT 91–94
[2016-07-25] MEDS: AMPICILLIN/SULBACTAM SOD INJ 3,000 MG in SODIUM CHLORIDE 0.9% 100ML 100 ML IV SCH ×3 (00:28→12:07)
[2016-07-25] MEDS: METHYLPREDNISOLONE IV 40 MG in SYRINGE 0 ML IV SCH ×2 (01:45→09:28)
[2016-07-25] MEDS: LEVOTHYROXINE 100 MCG TAB PO SCH (05:15)
[2016-07-25 06:55] LABS: HEMATOCRIT 30.5 % (37-47); MEAN CELL VOLUME 104.5 fL (80-100); MEAN CORPUSCULAR HEMOGLOBIN 35.3 pg (25-34); MEAN CORPUSCULAR HGB CONC 33.8 g/dl (32-36); MEAN PLATELET VOLUME 10.3 fL (7.4-10.4); PLATELET COUNT 24 K/uL (130-400); RED BLOOD COUNT 2.92 M/uL (4.2-5.4); WHITE BLOOD COUNT 1.11 K/uL (4.8-10.8)
--- NOTE | 2016-07-25 07:01 | Orthopedic Progress Note ---
Orthopedic Progress Note Date of Service Jul 25, 2016. Subjective Reports: feeling well Additional Notes: States she's having less pain today. Objective N/V intact, capillary refill less than 2 sec., A&O x3 Right hand with less swelling today and less pain. Mild erythema noted over the dorsum of the hand and somewhat going up the wrist. Good ROM of the wrist with minimal pain. Better ROM of the right hand/fingers with mild pain over the dorsum of the hand. Date Time Temp Pulse Resp B/P Pulse Ox O2 Delivery O2 Flow Rate FiO2 07/25/16 00:15 Nasal Cannula 2.0 07/24/16 22:52 36.7 85 18 105/65 93 Nasal Cannula 2.0 07/24/16 19:38 78 20 93 Nasal Cannula 2.0 07/24/16 16:15 93 Nasal Cannula 2.0 07/24/16 16:05 89 20 93 Nasal Cannula 2.0 07/24/16 15:04 36.7 92 18 103/68 95 Nasal Cannula 2.0 07/24/16 11:35 80 20 93 Nasal Cannula 3.0 07/24/16 08:15 Nasal Cannula 3.0 07/24/16 07:52 78 20 94 Nasal Cannula 3.0 07/24/16 07:30 36.6 81 16 112/64 93 Nasal Cannula 3.0 Laboratory Results 24 Hours: Test 07/25/16 06:00 White Blood Count 1.11 K/uL Red Blood Count 2.92 M/uL Hemoglobin 10.3 g/dL Hematocrit 30.5 % Mean Corpuscular Volume 104.5 fL Mean Corpuscular Hemoglobin 35.3 pg Mean Corpuscular Hemoglobin Concent 33.8 g/dl Platelet Count 24 K/uL Mean Platelet Volume 10.3 fL Assessment & Plan Assessment: Status post cat bite, cellulitis, possible extensor tenosynovitis. Plan: Improving overall. No need for surgery at this time. Continue IV antibx DC as per Primary Service.
[2016-07-25 07:06] LABS: COMPLETE YES; LYMPH % 23.4 %; LYMPH ABS # 0.26 K/uL (1.2-3.4); MONO % 0.9 %; NEUT % 75.7 %; PLT ESTIMATE SIGNIFIC DECREASED
[2016-07-25 07:43] LABS: ESTIMATED AVERAGE GLUCOSE 128 mg/dl; HA1C FLAG Normal (Normal)
[2016-07-25] MEDS: ALBUT/IPRATROP 3MG/0.5MG NEB 3 ML VIAL INH SCH ×4 (07:48→20:11)
[2016-07-25] MEDS: INSULIN ASPART 100 UNITS/ML 3 ML PEN SC SCH ×4 (08:00→21:00)
--- NOTE | 2016-07-25 09:01 | Hematology/Oncology Prog Note ---
Hematology/Onc Progress Note Date of Service Jul 25, 2016. Subjective Hematology consult requested in her case because of pancytopenia, she follows with Dr. Farrell, I reviewed her chart, I did not see her in the hospital. She is in known case myelodysplastic syndrome with pancytopenia, her platelet count was around 40,000 earlier in July,, ANC was around 1000 earlier in February,. Presently she is admitted following cat bite with some cellulitis, gradually recovering well, hemodynamically stable, responding well with the antibiotic treatment. I reviewed her blood workup done in the last 2 days, white blood cell count is around 1100, ANC is around 840, platelet count dropped down to around 24,000, hemoglobin is around 10.3 g/dL. As she clinically getting better, there is no need for Neupogen therapy. Similarly she does not require platelet transfusion unless she has bleeding complications. She should not be on any antiplatelet [place] [address]. She could go home on oral antibiotic treatment, she should see Dr. Farrell in the next 1-2 weeks. I spoke with the hospitalist (Dr. Rodriguez) on phone regarding her case. Inder Ragsdale MD Hematology/Oncology (This note was completed using the dictation program Fluency Direct. As such, there may be misspellings, word substitutions, or other variations that should not change the essence of the clinical content of this encounter note. If there is need for further clarification, please direct questions to the provider listed above.) Vital Signs Vital Signs Past 12 Hours Date Time Temp Pulse Resp B/P Pulse Ox O2 Delivery O2 Flow Rate FiO2 07/25/16 07:48 78 18 92 Nasal Cannula 2.0 07/25/16 07:30 Nasal Cannula 2.0 07/25/16 07:13 36.6 85 17 120/73 94 Nasal Cannula 2.0 07/25/16 00:15 Nasal Cannula 2.0 07/24/16 22:52 36.7 85 18 105/65 93 Nasal Cannula 2.0
[2016-07-25] MEDS: MULTIVITAMIN TAB PO SCH (09:27)
[2016-07-25] MEDS: PAROXETINE 30 MG TAB PO SCH (09:27)
[2016-07-25] MEDS: TIOTROPIUM BROMIDE 5 PUFF/90 MCG INH INH SCH (09:27)
[2016-07-25] MEDS: ALPRAZOLAM 0.5 MG TAB PO SCH ×3 (09:27→20:54)
[2016-07-25] MEDS: NICOTINE 14 MG/24 HR TDSY TD SCH (09:27)
[2016-07-25] MEDS: AZITHROMYCIN IV 500 MG in DEXTROSE 5% 250ML 250 ML IV SCH (09:30)
[2016-07-25] MEDS ORDERED: NURSING VERBAL MED ORDER ONE (14:00)
[2016-07-25] MEDS ORDERED: COUGH DROP (SUGAR FREE) LOZ 24 LOZ/1 BOX PO PRN (14:15)
[2016-07-25] MEDS: AMOXICILLIN/CLAVULANATE TAB 875 MG TAB PO SCH (18:26)
[2016-07-25] MEDS: SIMVASTATIN 40 MG TAB PO SCH (20:54)
[2016-07-25] MEDS: TRAZODONE HCL 50 MG TAB PO SCH (20:54)
[2016-07-25] MEDS ORDERED: ALBUT/IPRATROP 3MG/0.5MG NEB 3 ML VIAL INH PRN (23:23)
--- NOTE | 2016-07-25 23:31 | Progress Note ---
Medicine Progress Note Date & Time of Visit: Jul 25, 2016 at 16:02. Subjective -Denies pain today -able to utilize wrist more and feels almost back to baseline -tolerating PO -denies CP or SOB- -wearing O2 and states she wears this in the afternoons at home, too. Objective Last 8 Hrs Date Time Temp Pulse Resp B/P Pulse Ox O2 Delivery O2 Flow Rate FiO2 07/25/16 15:28 36.7 105 18 118/68 93 Nasal Cannula 2.0 07/25/16 11:42 106 91 07/25/16 10:59 99 18 93 Nasal Cannula 2.0 Physical Exam: GEN: elderly, frail, in no acute distress, alert and appropriate HEENT: NC/AT, normal sclerae CARDIO: reg rate, S1/2 heard without m/g/r LUNGS: minimal wheezing heard throughout lungs, good airflow ABD: soft, non-tender, non-distended, no rebound or guarding EXTREMITY: R wrist-dorsal erythema improved significantly, swelling has improved , ROM improved with limitation in flexion/extension of r wrist, pt can make a tight fist, two scabs puncture wounds present on RUE, one covered with c/d/i dressing, wwp, no edema NEURO: no gross focal deficits MUSC: no gross focal deficits SKIN: warm and dry Laboratory Results: Last 24 Hours Test 07/24/16 16:41 07/24/16 20:44 07/25/16 06:00 07/25/16 07:32 Bedside Glucose 205 mg/dl 216 mg/dl 155 mg/dl White Blood Count 1.11 K/uL Red Blood Count 2.92 M/uL Hemoglobin 10.3 g/dL Hematocrit 30.5 % Mean Corpuscular Volume 104.5 fL Mean Corpuscular Hemoglobin 35.3 pg Mean Corpuscular Hemoglobin Concent 33.8 g/dl Platelet Count 24 K/uL Mean Platelet Volume 10.3 fL Neutrophils (%) (Auto) 75.7 % Lymphocytes (%) (Auto) 23.4 % Monocytes (%) (Auto) 0.9 % Eosinophils (%) (Auto) 0.0 % Basophils (%) (Auto) 0.0 % Neutrophils # (Auto) 0.84 K/uL Lymphocytes # (Auto) 0.26 K/uL Monocytes # (Auto) 0.01 K/uL Eosinophils # (Auto) 0.00 K/uL Basophils # (Auto) 0.00 K/uL RDW Standard Deviation 49.6 fL RDW Coefficient of Variation 13.0 % Immature Granulocyte % (Auto) 0.0 % Immature Granulocyte # (Auto) 0.00 K/uL Platelet Estimate SIGNIFIC DECREASED Red Blood Cell Morphology Unremarkable Test 07/25/16 12:04 Bedside Glucose 275 mg/dl Assessment & Plan RIGHT UPPER EXTREMITY CELLULITIS S/P CAT BITE 07/12/2016: Afebrile overnight with significant improvement in redness. States that one of her bite scabs came off and pus drained out. Not requiring pain meds overnight last night. Blood cultures are negative. Will change Unasyn to Augmentin PO for total course 14 days. COPD/ CHRONIC RESPIRATORY FAILURE-ACUTE EXACERBATION-wheezing has improved on IV steroids. Change to prednisone for total 5 day course. Cont Azithro PO to cover for atypical organisms not covered by Augmentin. Flu screening was negative. Cont duonebs TACHYCARDIA-uncertain cause but has anxiety at baseline on Xanax, and is a smoker who may be having cravings. Appears shaky but this could just be her age. Xanax prn and will cont to monitor. Does not appear septic at this time with no fevers, chills and wound improved almost to resolution. PANCYTOPENIA/ MYELODYSPLASTIC SYNDROME: S/p bone marrow biopsy Follows with Dr. Farrell Afebrile Consulted Dr. Ragsdale (H/O) who said that she is OK to be discharged with continued f/u with Dr. Farrell. Appreciate Dr. Ragsdale's input--patient came in on ASA 81. This was held in light of platelets being 24K. Pt aware we are stopping this now. Monitor CBC-stable at this time DM TYPE 2 Diet controlled with last A1c 5.9 on 12/22/2015; repeat A1C is 6.1 Monitor BSG ACHS-several readings are >200, cover with ISS. Diabetic diet CKD STAGE III Baseline Cr 1.3 Improved to normal ANXIETY Continue alprazolam HYPOTHYROIDISM Continue levothyroxine DYSLIPIDEMIA Continue statin CHRONIC SMOKER Cessation advised Nicotine patch ordered DVT PROPHYLAXIS SCD's No anticoagulant due to chronic thrombocytopenia DISPOSITION: OK to be discharged back to home per PT Sri Garcia DO [facility] Hospitalist Current Inpatient Medications: Current Inpatient Medications Medications (Trade) Dose Ordered Sig/Kathryn Route Start Time Stop Time Status Last Admin Dose Admin Acetaminophen (Tylenol Tab) 650 mg Q4H PRN PO 07/23/16 13:15 08/22/16 13:14 07/24/16 04:42 650 MG Ondansetron HCl (Zofran Inj) 4 mg Q6H PRN IV 07/23/16 13:15 08/22/16 13:14 Morphine Sulfate (MoRPHine SULFATE INJ) 2 mg Q4H PRN IV 07/23/16 13:30 08/06/16 13:29 07/23/16 20:45 2 MG Nicotine (Nicoderm Cq 14MG Patch) 1 patch QAM TD 07/24/16 09:00 08/23/16 08:59 07/25/16 09:27 1 PATCH Miscellaneous (Remove Nicoderm Patch) 1 ea HS N/A 07/23/16 21:00 08/22/16 20:59 07/24/16 21:13 1 EA Albuterol (Ventolin Hfa Inhaler) 2 puffs BID PRN INH 07/23/16 13:45 08/22/16 13:44 Alprazolam (Xanax Tab) 0.5 mg TID PO 07/23/16 14:00 08/22/16 13:59 07/25/16 13:38 0.5 MG Levothyroxine Sodium (Synthroid Tab) 100 mcg DAILYBB PO 07/24/16 06:00 08/23/16 05:59 07/25/16 05:15 100 MCG Multivitamins (Multivitamin Tab) 1 tab DAILY PO 07/24/16 09:00 08/23/16 08:59 07/25/16 09:27 1 TAB Simvastatin (Zocor Tab) 40 mg QPM PO 07/23/16 21:00 08/22/16 20:59 07/24/16 21:12 40 MG Tiotropium [place] (Spiriva Handihaler Inhaler) 1 puff DAILY INH 07/24/16 09:00 08/23/16 08:59 07/25/16 09:27 1 PUFF Trazodone HCl (Desyrel Tab) 50 mg HS PO 07/23/16 21:00 08/22/16 20:59 07/24/16 21:12 50 MG Paroxetine HCl (pAXil) 30 mg DAILY PO 07/24/16 09:00 08/23/16 08:59 07/25/16 09:27 30 MG Albuterol/ Ipratropium (Duoneb) 3 ml QIDR INH 07/23/16 16:00 08/22/16 15:59 07/25/16 10:59 3 ML Ampicillin Sodium/ Sulbactam Sodium 1 ea 1 ea UD PRN N/A 07/23/16 15:47 08/22/16 15:46 Ampicillin Sodium/ Sulbactam Sodium 3000 mg/Sodium Chloride 108 ml @ 216 mls/hr Q6H IV 07/23/16 18:00 08/02/16 17:59 07/25/16 12:07 216 MLS/HR Azithromycin 500 mg/Dextrose 255 ml @ 125 mls/hr DAILY IV 07/24/16 10:30 08/02/16 11:03 07/25/16 09:30 125 MLS/HR Methylprednisolone Sodium Succinate/ Syringe (Solu-Medrol IV/ Syringe) 0.64 ml @ 1.5 mls/min Q8H IV 07/24/16 10:00 08/23/16 09:59 07/25/16 09:28 1.5 MLS/MIN Insulin Aspart (novoLOG ASPART) SLIDING SCALE If C... ACHS SC 07/25/16 08:00 08/24/16 07:59 07/25/16 12:10 4 UNITS Glucose (Glucose 40% Gel) 15-30 GRAMS 15 GRAMS... UD PRN PO 07/24/16 22:15 08/23/16 22:14 Glucose (Glucose Chew Tab) 4-8 Tablets 4 Tabl... UD PRN PO 07/24/16 22:15 08/23/16 22:14 Dextrose (Dextrose 50% 50ML Syringe) 25-50ML OF 50% DW IV FOR... UD PRN IV 07/24/16 22:15 08/23/16 22:14 Glucagon (Glucagon Inj) 1 mg UD PRN SQ 07/24/16 22:15 08/23/16 22:14 Menthol (Nice Mikey) 1 mikey PRN PRN PO 07/25/16 14:15 08/24/16 14:14 07/25/16 14:14 1 MIKEY
[2016-07-26] MEDS: LEVOTHYROXINE 100 MCG TAB PO SCH (05:30)
[2016-07-26 07:16] VITALS: BP 110/63; PULSE 91; TEMP 36.7; O2SAT 95
[2016-07-26 07:36] LABS: BUN/CREATININE RATIO 25.7 (10-20); CALCIUM 8.2 mg/dl (8.5-10.1); CREATININE 1.3 mg/dl (0.60-1.20); POTASSIUM 4.2 mmol/L (3.5-5.1)
[2016-07-26 07:41] LABS: HEMATOCRIT 29.1 % (37-47); MEAN CELL VOLUME 104.7 fL (80-100); MEAN CORPUSCULAR HEMOGLOBIN 35.3 pg (25-34); MEAN CORPUSCULAR HGB CONC 33.7 g/dl (32-36); MEAN PLATELET VOLUME 10.6 fL (7.4-10.4); PLATELET COUNT 27 K/uL (130-400); RED BLOOD COUNT 2.78 M/uL (4.2-5.4)
[2016-07-26 07:42] LABS: COMPLETE YES; EOS % 0.7 %; LYMPH % 32.7 %; LYMPH ABS # 0.49 K/uL (1.2-3.4); NEUT % 64.6 %; OVALOCYTES 2+; PLT ESTIMATE DECREASED
[2016-07-26 07:45] VITALS: PULSE 87; O2SAT 95
[2016-07-26] MEDS: INSULIN ASPART 100 UNITS/ML 3 ML PEN SC SCH ×2 (08:00→12:00)
[2016-07-26] MEDS: NICOTINE 14 MG/24 HR TDSY TD SCH (08:38)
[2016-07-26] MEDS: PAROXETINE 30 MG TAB PO SCH (08:40)
[2016-07-26] MEDS: AMOXICILLIN/CLAVULANATE TAB 875 MG TAB PO SCH (08:40)
[2016-07-26] MEDS: MULTIVITAMIN TAB PO SCH (08:40)
[2016-07-26] MEDS: TIOTROPIUM BROMIDE 5 PUFF/90 MCG INH INH SCH (08:41)
[2016-07-26] MEDS: ALPRAZOLAM 0.5 MG TAB PO SCH (08:44)
[2016-07-26] MEDS ORDERED: AZITHROMYCIN 250 MG TAB PO SCH (09:00)
[2016-07-26 12:55] VITALS: BP 110/63; PULSE 87; TEMP 36.7; O2SAT 95
[2016-07-26] MEDS ORDERED: NCDT14 TD (13:11)
[2016-07-26] MEDS ORDERED: AMOX1TAB43 PO (13:11)
[2016-07-26] MEDS ORDERED: ZTHM250 PO (13:11)
[2016-07-26] MEDS ORDERED: PRD20 PO (13:11)
--- NOTE | 2016-07-26 13:22 | Discharge Instructions ---
Discharge Instructions Admission Reason for Admission: Cat Bite Involving Extremity,Cellulitis Of Rt Arm Discharge Discharge Diagnosis / Problem: RUE cellulitis 2/2 animal bite, COPD exacerbation Discharge Goals Goal(s): Prevent Disease Progression Activity Recommendations Activity Limitations: resume your previous activity . Instructions / Follow-Up Instructions / Follow-Up Please take all medications as instructed. Please note you are being given some additional prednisone to take on top of your daily prednisone for the next 3 days. After this is complete, you will continue taking your 5mg tab daily. Please note you must stop aspirin as your platelets are very low and this may cause you to bleed. Please complete both antibiotic courses as prescribed. It is my recommendation that you stop smoking. You have been prescribed a Nicoderm patch to use daily to help with this. Your progress should be followed by your primary care physician, Dr. Howell. You have a follow-up appointment with Dr. Howell scheduled for 08/02 @ 3:00 pm. Please bring all paperwork from this hospitalization with you. It was a pleasure taking care of you! Call if you have any questions or problems. You can reach a [facility] hospitalist on duty at [facility] 24 hours a day by calling [phone]. Take care of yourself. Sri Garcia, [facility] Hospitalist Current Hospital Diet Patient's current hospital diet: AHA Diet (Heart Healthy), Diabetes Type 2 Diet Discharge Diet Recommended Diet: AHA Diet (Heart Healthy), Diabetes Type 2 Diet Procedures Procedures Performed: None. Pending Studies Studies pending at discharge: yes List of pending studies: Wound culture pending at discharge. Preliminary blood cultures were negative, however, final results will need to be followed by PCP. Laboratory Results Hemoglobin A1c Test 07/24/16 05:40 Range/Units Estimated Average Glucose 128 mg/dl Hemoglobin A1c 6.1 H 4.5-5.6 % Medical Emergencies . Who to Call and When: Medical Emergencies: If at any time you feel your situation is an emergency, please call 911 immediately. . Non-Emergent Contact Non-Emergency issues call your: Primary Care Provider . . "Provider Documentation" section prepared by Sri Garcia. VTE Core Measure Inpt VTE Proph given/why not?: SCD's, Contraindicated
--- NOTE | 2016-07-30 22:26 | Discharge Summary ---
Discharge Summary Admission Date: Jul 23, 2016 at 12:53 Discharge Date: Jul 26, 2016 Discharge Disposition: Home Principal Diagnosis: RUE cellulitis 2/2 cat bite COPD exacerbation Tobacco use Procedures: None. Vaccinations: None. Consultations: Ortho Hand Medication Reconciliation New Medications: Amoxicillin & Pot Clavulanate (Amoxicillin/Clavulanate P) 1 Tab Tab 875 MG PO BIDM for 11 Days, #22 TAB take wtih food. Azithromycin (Azithromycin) 250 Mg Tab 250 MG PO QAM for 3 Days, #3 TAB Nicotine (Nicotine) 1 Patch Tdsy 1 PATCH TD QAM for 30 Days, #30 PATCH Prednisone (Prednisone) 20 Mg Tab 40 MG PO DAILY for 3 Days, #6 TAB Take this on top of your daily prednisone 5mg for 3 days, then continue on the 5mg dose daily. Continued Medications: Albuterol Inhaler (Ventolin Inhaler) Aers 2 PUFFS INH BID PRN for SOB/Wheezing, INHALER Albuterol Sulf (Albuterol Sulfate) 2.5 Mg/3 Ml Nebu 1 DOSE INH Q4 PRN for Wheezing Alprazolam (Alprazolam) 0.5 Mg Tab 1 TAB PO TID, #90 Levothyroxine Sodium (Synthroid) 100 Mcg Tab 100 MCG PO DAILY Multiple Vitamin (Multivitamin) 1 Tab Tab 1 TAB PO DAILY, TAB Paroxetine (Paroxetine HCl) 30 Mg Tab 1 TAB PO DAILY, #30 Prednisone (Prednisone) 5 Mg Tab 5 MG PO DAILY Simvastatin (Zocor) 40 Mg Tab 40 MG PO QPM Tiotropium Beaver (Spiriva Handihaler) 5 Puff/90 Mcg Aerp 18 MCG INH DAILY Trazodone Hcl (Desyrel *) 50 Mg Tab 50 MG PO HS Discontinued Medications: Aspirin (Aspirin EC Low Dose) 81 Mg Ectab 81 MG PO DAILY Admission Information HPI (per Admitting provider): This is an 85 y/o female with PMH of myelodysplastic syndrome, DM type 2 diet controlled, COPD on home oxygen HS, current smoker, and other problems listed below who presents to the ED s/p cat bite. Patient reports cat bite occurred yesterday evening. She washed it with soap and water and applied Neosporin. Then overnight she developed pain, swelling, and erythema of the right wrist and dorsal hand. Pain is rated 10/10. She states [place] helped minimally but still having severe pain. Pain worsens with ROM of the wrist. The lesions have scabbed and there is no open area/drainage. No fevers or chills. No numbness or weakness of RUE. She is feeling generally weak today. She ambulates with a walker at home. Denies worsening of chronic cough productive of clear sputum. Patient was SOB ambulating to the restroom in ER. Denies worsening SOB/ wheezing from baseline. No chest pain, GI or urinary symptoms. Physical Exam (per Admitting): General Appearance: WD/WN, no apparent distress, + pertinent finding ( acutely ill appearing 85 year old female) Head: normocephalic, atraumatic Eyes: normal inspection, PERRL, EOMI ENT: pharynx normal, + pertinent finding (hard of hearing) Neck: supple Respiratory/Chest: no respiratory distress, no accessory muscle use, + pertinent finding (moderate wheezing present throughout) Cardiovascular: regular rate, rhythm, no murmur Abdomen/GI: normal bowel sounds, non tender, soft Extremities/Musculoskelatal: no pedal edema, + pertinent finding (right wrist joint is swollen, tender and limited ROM due to pain. MCP and PCP joints nontender and ROM intact.) Neurologic/Psych: alert, normal mood/affect, oriented x 3, + pertinent finding (generally weak but no motor deficit on gross exam) Skin: warm/dry, + pertinent finding (2 scabbed punctate lesions on dorsal aspect of right wrist. no drainage. + erythema, warmth, swelling, and tenderness of dorsal wrist and dorsal hand. has streaking up the forearm. no fluctuant area. also has scattered ecchymosis noted on left upper chest and bilateral LE) Hospital Course RIGHT UPPER EXTREMITY CELLULITIS S/P CAT BITE 07/12/2016: Consulted Ortho Hand who ordered MRI. MRI revealed no evidence of osteomyelitis, extensive soft tissue edema, most pronounced dorsally, and tenosynovitis involving the extensor digitorum and indices tendon sheath. There was also trace fluid noted within the extensor carpi ulnaris brevis and longus tendon sheaths. Per Ortho, conservative, non-operative management should be pursued with antibiotics. She remained afebrile with significant improvement in redness. At one point one of her bite scabs came off and pus drained out. Not requiring pain meds after HD2. Blood cultures are negative. Unasyn changed to Augmentin PO for total course 14 days. Just prior to leaving, and after at least 2-3 days on abx , a wound culture was able to be obtained from the site which was pending at discharge and revealed no growth. COPD/ CHRONIC RESPIRATORY FAILURE-ACUTE EXACERBATION-wheezing has improved on IV steroids. Change to prednisone for total 5 day course. Cont Azithro PO to cover for atypical organisms not covered by Augmentin. Flu screening was negative. Cont duonebs TACHYCARDIA-uncertain cause but has anxiety at baseline on Xanax, and is a smoker who may be having cravings. Appears shaky but this could just be her age. Xanax prn and will cont to monitor. Does not appear septic at this time with no fevers, chills and wound improved almost to resolution. Heart rate improved to 87 by time of discharge and she was asymptomatic. PANCYTOPENIA/ MYELODYSPLASTIC SYNDROME: S/p bone marrow biopsy Follows with Dr. Farrell Afebrile Consulted Dr. Ragsdale (H/O) who said that she is OK to be discharged with continued f/u with Dr. Farrell. Appreciate Dr. Ragsdale's input--patient came in on ASA 81. This was held in light of platelets being 24K. Pt aware we are stopping this now. Monitor CBC-stable at this time DM TYPE 2 Diet controlled with last A1c 5.9 on 12/22/2015; repeat A1C is 6.1 Monitor BSG ACHS-several readings are >200, cover with ISS. Diabetic diet CKD STAGE III Baseline Cr 1.3 Improved to normal ANXIETY Continue alprazolam HYPOTHYROIDISM Continue levothyroxine DYSLIPIDEMIA Continue statin CHRONIC SMOKER Cessation advised Nicotine patch ordered DVT PROPHYLAXIS SCD's No anticoagulant due to chronic thrombocytopenia DISPOSITION: OK to be discharged back to home per PT At time of discharge, she was eating well, remained afebrile, had total resolution of redness to her right hand area, and range of motion had returned to her right wrist and hand. She was not wheezing in her lungs and was having no increased work of breathing and was at baseline oxygen needs. She was ambulatory at baseline and was deemed safe to go home to her family support she has in place. She was discharged in good condition with close PCP follow-up. Total time spent on discharge = 60 minutes This includes examination of the patient, discharge planning, medication reconciliation, and communication with other providers. Discharge Instructions Discharge Instructions Admission Reason for Admission: Cat Bite Involving Extremity,Cellulitis Of Rt Arm Discharge Discharge Diagnosis / Problem: RUE cellulitis 2/2 animal bite, COPD exacerbation Discharge Goals Goal(s): Prevent Disease Progression Activity Recommendations Activity Limitations: resume your previous activity . Instructions / Follow-Up Instructions / Follow-Up Please take all medications as instructed. Please note you are being given some additional prednisone to take on top of your daily prednisone for the next 3 days. After this is complete, you will continue taking your 5mg tab daily. Please note you must stop aspirin as your platelets are very low and this may cause you to bleed. Please complete both antibiotic courses as prescribed. It is my recommendation that you stop smoking. You have been prescribed a Nicoderm patch to use daily to help with this. Your progress should be followed by your primary care physician, Dr. Howell. You have a follow-up appointment with Dr. Howell scheduled for 08/02 @ 3:00 pm. Please bring all paperwork from this hospitalization with you. It was a pleasure taking care of you! Call if you have any questions or problems. You can reach a [facility] hospitalist on duty at [facility] 24 hours a day by calling [phone]. Take care of yourself. Sri Garcia, [facility] Hospitalist Additional Copies To Christiano Howell M.D.
[2017-01-23] MEDS ORDERED: TRAM-10 PO (13:26)
[2017-01-23] MEDS ORDERED: ACET-1138 PO (13:26)
[2017-01-23] MEDS ORDERED: CALC200T PO (13:26)
== END 2016-07-26 13:38 | disposition home or self-care (01) | DRG 603 ==
LOC: ENRESERVTM → ENRESERVDT → EDBD 09:53 → C.EDB 09:55 → UNDOADMIN 12:53 → C.MSW 12:53
PROVIDERS: ADMIT Hospitalist; ATTEND Internal Medicine
DX: L03.113 Cellulitis of right upper limb (principal); S61.531A Puncture wound without foreign body of right wrist, initial encounter; M65.141 Other infective (teno)synovitis, right hand; J44.1 Chronic obstructive pulmonary disease with (acute) exacerbation; J96.11 Chronic respiratory failure with hypoxia; D46.9 Myelodysplastic syndrome, unspecified; F17.210 Nicotine dependence, cigarettes, uncomplicated; R00.0 Tachycardia, unspecified; E03.9 Hypothyroidism, unspecified; E11.21 Type 2 diabetes mellitus with diabetic nephropathy; K80.20 Calculus of gallbladder without cholecystitis without obstruction; F32.9 Major depressive disorder, single episode, unspecified; F41.1 Generalized anxiety disorder; N18.3 Chronic kidney disease, stage 3 (moderate); M81.0 Age-related osteoporosis without current pathological fracture; E55.9 Vitamin D deficiency, unspecified; E78.5 Hyperlipidemia, unspecified; Z79.52 Long term (current) use of systemic steroids; W55.01XA Bitten by cat, initial encounter; Z87.442 Personal history of urinary calculi; Y92.009 Unspecified place in unspecified non-institutional (private) residence as the place of occurrence of the external cause

== ENCOUNTER 2017-01-18 10:45 | Inpatient (IN) | payer OTHER ==
[~2017-01-18] VITALS: Ht 162.6 cm; Wt 59.9 kg
[2017-01-18] VITALS (7 sets, daily range): BP systolic 104–125; BP diastolic 68–76; PULSE 89–96; TEMP 36.5–36.8; O2SAT 88–91; Ht 162.6 cm; Wt 59.9 kg
[~2017-01-18 10:45] MED LIST changes: +ALPR-411 PO; +AMOX1TAB43 PO; -CLON1TAB3 PO; -FLUT110A INH; -LVQ500 PO; +MULTTAB58 PO; +NCDT14 TD; +PARO30TA4 PO; +PRD20 PO; +ZTHM250 PO
[2017-01-18] MEDS ORDERED: ALBUT/IPRATROP 3MG/0.5MG NEB 3 ML VIAL INH STA (11:21)
[2017-01-18] MEDS ORDERED: ACETAMINOPHEN 325 MG TAB PO STA (11:21)
[2017-01-18] MEDS ORDERED: TRAMADOL HCL 50 MG TAB PO STA (11:21)
--- NOTE | 2017-01-18 11:22 | EMERGENCY ROOM VISIT NOTE ---
History Report prepared by Shemar: Vy Esparza Under the Supervision of: Dr. Maria Eugenia Rodriguez M.D. First contact with patient: 11:11 Chief Complaint: BACK PAIN Stated Complaint: FALL/BACK PAIN History of Present Illness The patient is a 86 year old female who presents to the Emergency Room with complaints of constant back pain beginning just prior to arrival. The patient states that she was in her bedroom and she fell to the ground. The patient fell onto her bottom and then fell backwards onto her back. The pain worsens with movement. She also notes a cough with sputum. The patient denies LOC, hip pain, abdominal pain or chest pain. She does wear 2 liters of oxygen at home. The patient is not on blood thinners. She took Tylenol at home to alleviate the pain. Source of History: patient Onset: just [employer]PECTOR Position: back Timing: constant Modifying Factors (Relieving): tylenol Associated Symptoms: + cough, No LOC, No chest pain, No abdominal pain Review of Systems See HPI for pertinent positives & negatives. A total of 10 systems reviewed and were otherwise negative. Past Medical & Surgical Medical Problems: (1) Anemia (2) Cholelithiasis (3) CKD (chronic kidney disease), stage III (4) COPD, moderate (5) Depression (6) DM type 2 (diabetes mellitus, type 2) (7) Dyslipidemia (8) Fall (9) Generalized anxiety disorder (10) History of renal stone (11) Hypothyroidism (12) Neutropenic fever (13) Osteoporosis (14) Pancytopenia (15) Raynauds syndrome (16) SIRS (systemic inflammatory response syndrome) (17) Tobacco abuse (18) Vitamin D deficiency Surgical Problems: (1) History of cataract surgery (2) History of open reduction and internal fixation (ORIF) procedure (3) History of parotid gland removal (4) Hx of tubal ligation Family History Heart disease FATHER Stroke MOTHER Social History Smoking Status: Current Every Day Smoker Alcohol Use: none Marital Status: Housing Status: jail Occupation Status: retired Current/Historical Medications Scheduled Fluticasone Propionate (Flovent Hfa), 2 PUFFS INH BID Levothyroxine Sodium (Levothyroxine Sodium), 1 TAB PO DAILY Mirtazapine (Remeron), 1 TAB PO HS Multiple Vitamin (Multivitamin), 1 TAB PO DAILY Paroxetine (Paroxetine HCl), 30 MG PO DAILY Prednisone (Prednisone), 5 MG PO DAILY Simvastatin (Zocor), 40 MG PO QPM Tiotropium Stearns (Spiriva Handihaler), 18 MCG INH DAILY Trazodone Hcl (Desyrel), 50 MG PO HS Scheduled PRN Albuterol Hfa (Ventolin Hfa), 2-4 PUFFS INH Q6H PRN for SOB/Wheezing Albuterol Sulf (Albuterol Sulfate), 1 DOSE INH Q4 PRN for Wheezing Alprazolam (Alprazolam), 0.5 MG PO TID PRN for Anxiety Allergies Coded Allergies: Niacin (Verified Allergy, Unknown, 01/18/17) Physical Exam Vital Signs Date Time Temp Pulse Resp B/P (MAP) Pulse Ox O2 Delivery O2 Flow Rate FiO2 01/18/17 14:55 95 20 103/63 88 01/18/17 14:45 95 20 103/63 88 Nasal Cannula 2.0 01/18/17 13:44 88 Nasal Cannula 2.0 01/18/17 13:34 90 211/199 88 Nasal Cannula 2.0 01/18/17 13:22 88 16 92 Nasal Cannula 3.0 01/18/17 12:33 80 01/18/17 11:55 84 18 90/78 93 Nasal Cannula 3.0 01/18/17 11:00 36.8 82 22 114/68 92 Nasal Cannula 3.0 01/18/17 10:55 87 Physical Exam Vital signs reviewed. General: Elderly chronically ill appearing female, in no significant distress, on nasal canula oxygen. HEENT: No scleral icterus, PERRLA, neck supple. Atraumatic. Cardiovascular: Regular rate and rhythm, no extra sounds. Pulmonary: Clear to auscultation bilaterally. Increased work of breathing. Stable O2 stats. Abdomen: Soft, nontender, nondistended, positive bowel sounds. Musculoskeletal: Mild tenderness to low lumbar paraspinous muscles bilaterally. No significant pain with straight leg raise. Atraumatic, no peripheral edema. Neurologic: Patient awake alert and oriented x 3 Skin: Warm, dry, no rash Medical Decision & Procedures ER Provider Diagnostic Interpretation: X-ray results as stated below per interpretation by me and the radiologist: SINGLE VIEW PELVIS CLINICAL HISTORY: Fall. FINDINGS: An AP pelvic radiograph is correlated with pelvic CT dated 10/11/2011. The skeletal structures are osteopenic. There is no radiographic evidence of fracture involving the hips or bony pelvis. Mild arthritic change is seen in the hips. The sacroiliac joints are normal as imaged. Lumbosacral spondylosis is observed. The overlying soft tissues are within normal limits. There is atherosclerotic calcification of the abdominal aorta. There is a nonobstructed abdominal bowel gas pattern. Scattered pelvic phleboliths are identified. IMPRESSION: Osteopenia and degenerative change as above. No fracture is seen involving the hips or bony pelvis. Electronically signed by: Flakito Ward M.D. 01/18/2017 1:25 PM Dictated Date/Time: 01/18/2017 1:21 PM CHEST ONE VIEW PORTABLE CLINICAL HISTORY: Cough, SOB dyspnea COMPARISON STUDY: 07/23/2016 FINDINGS: Emphysematous change. Mild chronic parenchymal fibrotic change. Potential developing 1.7 cm right suprahilar nodular density. Diaphragms are smooth. Calcific calcified granulomas are noted throughout. IMPRESSION: Developing emphysematous change as well as a potential right suprahilar nodule. CT chest suggested as follow-up. Electronically signed by: Christiano Dorado M.D. 01/18/2017 1:30 PM Dictated Date/Time: 01/18/2017 1:28 PM Laboratory Results 01/18/17 10:55 Red Blood Count 2.85, Mean Corpuscular Volume 110.5, Mean Corpuscular Hemoglobin 36.8, Mean Corpuscular Hemoglobin Concent 33.3, Mean Platelet Volume 10.6, Neutrophils (%) (Auto) 32.9, Lymphocytes (%) (Auto) 63.8, Monocytes (%) ( Auto) 0.7, Eosinophils (%) (Auto) 2.6, Basophils (%) (Auto) 0.0, Neutrophils # ( Auto) 0.50, Lymphocytes # (Auto) 0.97, Monocytes # (Auto) 0.01, Eosinophils # ( Auto) 0.04, Basophils # (Auto) 0.00 01/18/17 10:55 Test 01/18/17 10:55 01/18/17 11:44 White Blood Count 1.52 K/uL (4.8-10.8) Red Blood Count 2.85 M/uL (4.2-5.4) Hemoglobin 10.5 g/dL (12.0-16.0) Hematocrit 31.5 % (37-47) Mean Corpuscular Volume 110.5 fL (80-100) Mean Corpuscular Hemoglobin 36.8 pg (25-34) Mean Corpuscular Hemoglobin Concent 33.3 g/dl (32-36) Platelet Count 27 K/uL (130-400) Mean Platelet Volume 10.6 fL (7.4-10.4) Neutrophils (%) (Auto) 32.9 % Lymphocytes (%) (Auto) 63.8 % Monocytes (%) (Auto) 0.7 % Eosinophils (%) (Auto) 2.6 % Basophils (%) (Auto) 0.0 % Neutrophils # (Auto) 0.50 K/uL (1.4-6.5) Lymphocytes # (Auto) 0.97 K/uL (1.2-3.4) Monocytes # (Auto) 0.01 K/uL (0.11-0.59) Eosinophils # (Auto) 0.04 K/uL (0-0.5) Basophils # (Auto) 0.00 K/uL (0-0.2) RDW Standard Deviation 53.8 fL (36.4-46.3) RDW Coefficient of Variation 13.4 % (11.5-14.5) Immature Granulocyte % (Auto) 0.0 % Immature Granulocyte # (Auto) 0.00 K/uL (0.00-0.02) Anion Gap 4.0 mmol/L (3-11) Est Creatinine Clear Calc Drug Dose 27.3 ml/min Estimated GFR () 43.3 Estimated GFR (Non- 37.4 BUN/Creatinine Ratio 15.9 (10-20) Calcium Level 8.5 mg/dl (8.5-10.1) Magnesium Level 2.0 mg/dl (1.8-2.4) Total Bilirubin 0.3 mg/dl (0.2-1) Direct Bilirubin 0.1 mg/dl (0-0.2) Aspartate Amino Transf (AST/SGOT) 17 U/L (15-37) Alanine Aminotransferase (ALT/SGPT) 18 U/L (12-78) Alkaline Phosphatase 52 U/L (45-117) Total Creatine Kinase 40 U/L (26-192) Creatine Kinase MB 1.5 ng/ml (0.5-3.6) Creatine Kinase MB Ratio 3.8 (0-3.0) Total Protein 6.3 gm/dl (6.4-8.2) Albumin 3.1 gm/dl (3.4-5.0) Bedside Troponin I 0.090 ng/ml (0-0.045) Laboratory results per my review. Medications Administered Medications (Trade) Dose Ordered Sig/Kathryn Route Start Time Stop Time Status Last Admin Dose Admin Albuterol/ Ipratropium (Duoneb) 3 ml NOW STAT INH 01/18/17 11:21 01/18/17 11:23 DC 01/18/17 11:55 3 ML Tramadol HCl (Ultram Tab) 50 mg NOW STAT PO 01/18/17 11:21 01/18/17 11:24 DC 01/18/17 11:55 50 MG Acetaminophen (Tylenol Tab) 650 mg NOW STAT PO 01/18/17 11:21 01/18/17 11:24 DC 01/18/17 11:55 650 MG Sodium Chloride 1,000 ml @ 150 mls/hr Q6H40M STAT IV 01/18/17 12:08 01/18/17 14:11 DC 01/18/17 12:24 150 MLS/HR Alprazolam (Xanax Tab) 0.5 mg NOW STAT PO 01/18/17 13:29 01/18/17 13:32 DC 01/18/17 13:43 0.5 MG ECG Indication: back/shoulder pain Rate (beats per minute): 83 Rhythm: normal sinus Findings: T-wave inversion (Anterior), other (left axis deviation, previous inferior and intralateral infarct) Change: no significant change (from 07/24/16) ED Course 1116: Past medical records reviewed. The patient was evaluated in room B3. A complete history and physical examination was performed. 1121: Tylenol Tab 650 mg PO, Ultram Tab 50 mg PO, Duoneb 3 ml INH. 1208: Sodium Chloride 1,000 ml @ 150 mls/hr IV. 1327: I reviewed the patient's case with SHELBY Alva. She will evaluate the patient for further management. 1329: Xanax Tab 0.5 mg PO. 1335: Upon reevaluation, the patient is resting comfortably. I discussed laboratory and radiographic results with the patient. She verbalized agreement of the treatment plan. I spoke with SHELBY Alva. The patient will be evaluated for further management and care. Medical Decision Trauma: Intracranial injury, cervical spine injury, intrathoracic injury, intra- abdominal injury, musculoskeletal injury, COPD exacerbation, pneumonia, bronchitis. Medication Reconciliation: I attest that I have personally reviewed the patient' s current medication list. Blood Pressure Screening: Patient was found to have normal to low blood pressure on screening and does not require follow-up. This patient was evaluated and appeared to be in some respiratory discomfort. Patient has an increased work of breathing on her oxygen. She normally wears 2 L and is currently at 3 L. EKG reveals chronic T-wave inversion. There is no ST elevation noted. Patient's troponin is 0.09. She does have a mild renal insufficiency. Patient has a chronic neutropenia and thrombocytopenia noted. Chest x-ray is read as developing emphysematous changes and a possible pulmonary nodule. Patient was given a DuoNeb treatment. CT scan of the abdomen and pelvis to rule out retroperitoneal bleed indicates a new L5 fracture and an abdominal aortic aneurysm of approximately 3.4 cm. there is no evidence of retroperitoneal bleed. Due to the above findings, patient will be evaluated by the hospitalist service for further management. Of note the patient did ambulate to the restroom without oxygen in place (she refused) and upon return was noted to be 81%. She took some time to recover. Patient is aware of the plan for admission and agrees. Consults Time Called: 1325 Consulting Physician: SHELBY Alva Returned Call: 1327 I reviewed the patient's case with SHELBY Alva. She will evaluate the patient for further management. Impression Primary Impression: Hypoxic Additional Impressions: Lumbar back pain Thrombopenia Neutropenia Elevated troponin Scribe Attestation The scribe's documentation has been prepared under my direction and personally reviewed by me in its entirety. I confirm that the note above accurately reflects all work, treatment, procedures, and medical decision making performed by me. Departure Information Dispostion Being Evaluated By Hospitalist Referrals Christiano Howell M.D. (PCP) Problem Qualifiers
[2017-01-18 11:41] LABS: BUN/CREATININE RATIO 15.9 (10-20); CALCIUM 8.5 mg/dl (8.5-10.1); CREATININE 1.3 mg/dl (0.60-1.20); POTASSIUM 4.5 mmol/L (3.5-5.1)
[2017-01-18] MEDS ORDERED: VNTHFA/IN INH (11:41)
[2017-01-18] MEDS ORDERED: TRAZ1TAB16 PO (11:42)
[2017-01-18 11:46] LABS: CKMB/CK RATIO 3.8 (0-3.0)
[2017-01-18] MEDS ORDERED: SODIUM CHLORIDE 0.9% 1000ML 1,000 ML IV STA (12:08)
[2017-01-18 12:27] LABS: COMPLETE YES; EOS % 2.6 %; HEMATOCRIT 31.5 % (37-47); LYMPH % 63.8 %; LYMPH ABS # 0.97 K/uL (1.2-3.4); MEAN CELL VOLUME 110.5 fL (80-100); MEAN CORPUSCULAR HEMOGLOBIN 36.8 pg (25-34); MEAN CORPUSCULAR HGB CONC 33.3 g/dl (32-36); MEAN PLATELET VOLUME 10.6 fL (7.4-10.4); MONO % 0.7 %; NEUT % 32.9 %; PLATELET COUNT 27 K/uL (130-400); RED BLOOD COUNT 2.85 M/uL (4.2-5.4); WHITE BLOOD COUNT 1.52 K/uL (4.8-10.8)
--- NOTE | 2017-01-18 13:27 | DIAGNOSTIC IMAGING REPORT ---
SINGLE VIEW PELVIS CLINICAL HISTORY: Fall. FINDINGS: An AP pelvic radiograph is correlated with pelvic CT dated 10/11/2011. The skeletal structures are osteopenic. There is no radiographic evidence of fracture involving the hips or bony pelvis. Mild arthritic change is seen in the hips. The sacroiliac joints are normal as imaged. Lumbosacral spondylosis is observed. The overlying soft tissues are within normal limits. There is atherosclerotic calcification of the abdominal aorta. There is a nonobstructed abdominal bowel gas pattern. Scattered pelvic phleboliths are identified. IMPRESSION: Osteopenia and degenerative change as above. No fracture is seen involving the hips or bony pelvis. Electronically signed by: Flakito Ward M.D. 01/18/2017 1:25 PM Dictated Date/Time: 01/18/2017 1:21 PM
[2017-01-18] MEDS ORDERED: ALPRAZOLAM 0.5 MG TAB PO STA (13:29)
--- NOTE | 2017-01-18 13:32 | DIAGNOSTIC IMAGING REPORT ---
CHEST ONE VIEW PORTABLE CLINICAL HISTORY: Cough, SOB dyspnea COMPARISON STUDY: 07/23/2016 FINDINGS: Emphysematous change. Mild chronic parenchymal fibrotic change. Potential developing 1.7 cm right suprahilar nodular density. Diaphragms are smooth. Calcific calcified granulomas are noted throughout. IMPRESSION: Developing emphysematous change as well as a potential right suprahilar nodule. CT chest suggested as follow-up. Electronically signed by: Christiano Dorado M.D. 01/18/2017 1:30 PM Dictated Date/Time: 01/18/2017 1:28 PM
[2017-01-18] MEDS ORDERED: OPTIRAY 320 IV PRN (13:45)
[2017-01-18] MEDS ORDERED: NITROGLYCERIN 0.4 MG SL PER TAB CHARGE SL PRN (14:00)
[2017-01-18] MEDS ORDERED: ONDANSETRON INJ 2 MG/ML 2 ML VIAL IV PRN (14:00)
[2017-01-18] MEDS ORDERED: SODIUM CHLORIDE 0.9% 1000ML 1,000 ML IV SCH (14:15)
[2017-01-18] MEDS ORDERED: HYDR-5688 PO (15:11)
[2017-01-18] MEDS ORDERED: MIRT15TA PO (15:11)
[2017-01-18] MEDS ORDERED: LEVO88TA3 PO (15:11)
[2017-01-18] MEDS ORDERED: FLVHFA110 INH (15:11)
--- NOTE | 2017-01-18 15:24 | DIAGNOSTIC IMAGING REPORT ---
CT OF THE CHEST WITH IV CONTRAST CLINICAL HISTORY: Fall. Low platelet count. Abnormal chest radiograph. COMPARISON STUDY: Chest radiograph January 18, 2017. TECHNIQUE: Following IV administration of 93 mL of Optiray-320, helical axial images of the chest were obtained. Images were viewed in the axial, sagittal and coronal planes. IV contrast was administered without complication. CT DOSE: 610.57 mGy.cm FINDINGS: No enlarged axillary, mediastinal or hilar lymph nodes are present. The heart is mildly enlarged. There is extensive coronary artery calcification. Central airways are patent. Moderate emphysema is noted. No pulmonary nodule is identified. The possible right upper lobe nodule shown on prior radiograph was artifactual. Linear and groundglass opacities reflect atelectasis. There is no pneumothorax or pleural effusion. There is an old mild T3 compression fracture. The abdomen and pelvis will be reported separately however these images demonstrate left renal calculi and a few renal cysts as well as renal atrophy, greater on the left. IMPRESSION: 1. No suspicious pulmonary nodules. The possible right lung nodule shown on prior chest radiograph was artifactual. 2. No acute intrathoracic findings. 3. Moderate emphysema. 4. Old mild T3 compression fracture. Electronically signed by: Ajit Alvarez M.D. 01/18/2017 3:22 PM Dictated Date/Time: 01/18/2017 3:12 PM
--- NOTE | 2017-01-18 15:32 | DIAGNOSTIC IMAGING REPORT ---
CT SCAN OF THE ABDOMEN AND PELVIS WITH IV CONTRAST CLINICAL HISTORY: Fall. COMPARISON STUDY: Abdominal CT dated 10/11/2011. TECHNIQUE: Following the IV administration of 93 cc of Optiray 320, CT scan of the abdomen and pelvis is performed from the lung bases to the proximal femora. Images are reviewed in the axial, sagittal, and coronal planes. IV contrast was administered without complication. Automated dose control exposure was utilized. FINDINGS: Lung bases: The heart is normal in size and without pericardial effusion. There are coronary artery calcifications. Emphysema is suggested. There is bronchiectasis seen in the lower lobes bilaterally with foci of bibasilar scarring/atelectasis. No airspace consolidation is seen typical for pneumonia and there is no pleural effusion. A tiny hiatal hernia is identified. Liver: The contrast-enhanced liver is normal in size, contour, and attenuation. There is no intrahepatic biliary ductal dilatation. The hepatic veins and portal veins are patent. Gallbladder: There are calcified gallstones. The gallbladder is otherwise normal in appearance. Spleen: Normal in size and attenuation. Pancreas: Unremarkable. Adrenal glands: Unremarkable. Kidneys: The contrast enhanced kidneys are atrophic and without hydronephrosis. The kidneys enhance symmetrically. There are numerous small bilateral nonobstructing renal calculi which measure up to 5 mm. Scattered subcentimeter cortical hypodensities likely represent cysts but are too small for definitive characterization. Foci of cortical scarring are present in both kidneys. Abdominal vasculature: There is advanced atherosclerotic calcification of the abdominal aorta. 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 Bowel: The small bowel and colon are normal in course and caliber. There is moderate to advanced colonic diverticulosis without CT evidence of acute diverticulitis. Moderate colonic fecal retention is observed. The appendix is well-visualized and normal. Peritoneum: There is no intraperitoneal free air or abdominal ascites. Lymphadenopathy: None. Pelvic viscera: The bladder is distended and grossly unremarkable. The uterus is normal in appearance. No adnexal lesion is seen. Findings suggest pelvic floor prolapse. Skeletal structures: The skeletal structures are osteopenic. There is mild to moderate lumbosacral spondylosis. No lytic or blastic lesions are seen. There is a mild chronic superior endplate compression deformity of L4. There is an age indeterminant mild to moderate compression deformity of L5. Paravertebral edema is noted and this is likely acute. No retropulsed fragments are seen. No additional findings are concerning for acute fracture. There are healed left posterior rib fractures. IMPRESSION: 1. There is no evidence of solid organ injury in the abdomen or pelvis. 2. There is a [id number] and suspected acute appearing compression fracture of L5 with associated paravertebral edema. No retropulsed fragments are seen. 3. No additional acute fracture is seen. A mild compression deformity of L4 is unchanged from 2012. 4. Cardiomegaly, emphysema, and chronic change/bronchiectasis are seen at the lung bases. See report of chest CT performed concurrently for detailed intrathoracic findings. 5. Cholelithiasis and bilateral nephrolithiasis. 6. 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 7. Moderate to advanced colonic diverticulosis without CT evidence of acute diverticulitis. 8. Additional findings as above. Electronically signed by: Flakito Ward M.D. 01/18/2017 3:31 PM Dictated Date/Time: 01/18/2017 3:19 PM
[2017-01-18] MEDS: ALBUT/IPRATROP 3MG/0.5MG NEB 3 ML VIAL INH SCH ×2 (16:00→18:01)
--- NOTE | 2017-01-18 16:23 | DIAGNOSTIC IMAGING REPORT ---
LUMBAR SPINE 5 VIEWS HISTORY: Pain fall with low back tenderness COMPARISON: None. FINDINGS: Generalized degenerative change. Slight wedge deformity superior endplate L4 considered old radiographically. Moderate degenerative disc changes throughout. No evidence for subluxation. IMPRESSION: Degenerative change. Slight compression deformity superior endplate L4 considered to be old. Electronically signed by: Christiano Dorado M.D. 01/18/2017 4:21 PM Dictated Date/Time: 01/18/2017 4:20 PM
--- NOTE | 2017-01-18 17:11 | History and Physical ---
History & Physical Date & Time of Service: Jan 18, 2017 ~ 15:45 Chief Complaint: Fall, Back Pain Primary Care Physician: Christiano Howell M.D. History of Present Illness 86 year old female who presents to the ER after a fall and back pain. Patient reports she fell two days ago. She was in her bedroom standing at the window turning off the AC and when she turned around she fell to the floor landing on her buttocks. She reports the pain was tolerable at that point and she was able to get up and get to bed. She denies any associated lightheadedness or dizziness. She did not strike her head or loose consciousness. She denies any associated chest pain. She has chronic exertional shortness of breath which she reports if unchanged. She also has a chronic cough which is unchanged as well. She reports the pain has progressively gotten worse over the past two days. Pain is located in her lower back. She denies any radiation of the pain into her legs. She denies any bowel or bladder difficulties. No lower extremity weakness, numbness, or tingling. She denies fever and chills. No abdominal pain , nausea, vomiting, or diarrhea. She denies urinary symptoms. While walking to the bathroom in the ER, patient insisted on going without her oxygen, when she retuned she was saturating 80% on room air. This improved once oxygen was reapplied. CT abd/pelvis is showing an acute L5 compression fractures. Labs show a pancytopenia which is chronic for her. She was given Tramadol and Tylenol for her pain and she reports much improvement. Past Medical/Surgical History Medical Problems: (1) Cholelithiasis Status: Chronic (2) CKD (chronic kidney disease), stage III Status: Chronic (3) COPD, moderate Permanent Comment: on 2L O2 Status: Chronic (4) Depression Status: Chronic (5) DM type 2 (diabetes mellitus, type 2) Status: Chronic (6) Dyslipidemia Status: Chronic (7) Generalized anxiety disorder Status: Chronic (8) History of renal stone Status: Chronic (9) Hypothyroidism Status: Chronic (10) Myelodysplastic disease Status: Chronic (11) Osteoporosis Status: Chronic (12) Pancytopenia Status: Chronic (13) Raynauds syndrome Status: Chronic (14) Tobacco abuse Status: Chronic (15) Vitamin D deficiency Status: Chronic Surgical Problems: (1) History of cataract surgery Status: Resolved (2) History of open reduction and internal fixation (ORIF) procedure Permanent Comment: ORIF left humerus fracture 2010 Status: Resolved (3) History of parotid gland removal Permanent Comment: 2011, benign Status: Resolved (4) Hx of tubal ligation Status: Resolved Family History non contributory due to patient's advanced age Social History Smoking Status: Current Every Day Smoker Alcohol Use: none Housing status: lives with family Immunizations History of Influenza Vaccine: Yes Influenza Vaccine Date: May 12, 2016 History of Tetanus Vaccine?: Yes Tetanus Immunization Date: December 09, 2014 History of Pneumococcal: Yes Pneumococcal Date: Jul 07, 2014 Multi-Drug Resistant Organisms History of MDRO: No Allergies Coded Allergies: Niacin (Verified Allergy, Unknown, 01/18/17) Home Medications Scheduled Fluticasone Propionate (Flovent Hfa), 2 PUFFS INH BID Levothyroxine Sodium (Levothyroxine Sodium), 1 TAB PO DAILY Mirtazapine (Remeron), 1 TAB PO HS Multiple Vitamin (Multivitamin), 1 TAB PO DAILY Paroxetine (Paroxetine HCl), 30 MG PO DAILY Prednisone (Prednisone), 5 MG PO DAILY Simvastatin (Zocor), 40 MG PO QPM Tiotropium Mears (Spiriva Handihaler), 18 MCG INH DAILY Trazodone Hcl (Desyrel), 50 MG PO HS Scheduled PRN Albuterol Hfa (Ventolin Hfa), 2-4 PUFFS INH Q6H PRN for SOB/Wheezing Albuterol Sulf (Albuterol Sulfate), 1 DOSE INH Q4 PRN for Wheezing Alprazolam (Alprazolam), 0.5 MG PO TID PRN for Anxiety Review of Systems ROS per HPI, all other systems reviewed and negative Physical Exam Vital Signs Date Time Temp Pulse Resp B/P (MAP) Pulse Ox O2 Delivery O2 Flow Rate FiO2 01/18/17 15:47 36.5 91 18 104/68 (80) 90 Nasal Cannula 2.0 01/18/17 14:55 95 20 103/63 88 01/18/17 14:45 95 20 103/63 88 Nasal Cannula 2.0 01/18/17 13:44 88 Nasal Cannula 2.0 01/18/17 13:34 90 211/199 88 Nasal Cannula 2.0 01/18/17 13:22 88 16 92 Nasal Cannula 3.0 01/18/17 12:33 80 01/18/17 11:55 84 18 90/78 93 Nasal Cannula 3.0 01/18/17 11:00 36.8 82 22 114/68 92 Nasal Cannula 3.0 01/18/17 10:55 87 General Appearance: no apparent distress Head: normocephalic Eyes: normal inspection ENT: hearing grossly normal Neck: supple, no JVD Respiratory/Chest: no respiratory distress, + decreased breath sounds, + pertinent finding (scattered coarse breath sounds) Cardiovascular: regular rate, rhythm, no edema Abdomen/GI: normal bowel sounds, non tender, soft Extremities/Musculoskelatal: normal inspection, no calf tenderness Neurologic/Psych: no motor/sensory deficits, alert, normal mood/affect, oriented x 3 Skin: normal color, warm/dry Diagnostics Laboratory Results Results Past 24 Hours Test 01/18/17 10:55 01/18/17 11:44 01/18/17 16:16 Range/Units White Blood Count 1.52 4.8-10.8 K/uL Red Blood Count 2.85 4.2-5.4 M/uL Hemoglobin 10.5 12.0-16.0 g/dL Hematocrit 31.5 37-47 % Mean Corpuscular Volume 110.5 80-100 fL Mean Corpuscular Hemoglobin 36.8 25-34 pg Mean Corpuscular Hemoglobin Concent 33.3 32-36 g/dl Platelet Count 27 130-400 K/uL Mean Platelet Volume 10.6 7.4-10.4 fL Neutrophils (%) (Auto) 32.9 % Lymphocytes (%) (Auto) 63.8 % Monocytes (%) (Auto) 0.7 % Eosinophils (%) (Auto) 2.6 % Basophils (%) (Auto) 0.0 % Neutrophils # (Auto) 0.50 1.4-6.5 K/uL Lymphocytes # (Auto) 0.97 1.2-3.4 K/uL Monocytes # (Auto) 0.01 0.11-0.59 K/uL Eosinophils # (Auto) 0.04 0-0.5 K/uL Basophils # (Auto) 0.00 0-0.2 K/uL RDW Standard Deviation 53.8 36.4-46.3 fL RDW Coefficient of Variation 13.4 11.5-14.5 % Immature Granulocyte % (Auto) 0.0 % Immature Granulocyte # (Auto) 0.00 0.00-0.02 K/uL Sodium Level 141 136-145 mmol/L Potassium Level 4.5 3.5-5.1 mmol/L Chloride Level 108 98-107 mmol/L Carbon Dioxide Level 29 21-32 mmol/L Anion Gap 4.0 3-11 mmol/L Blood Urea Nitrogen 21 7-18 mg/dl Creatinine 1.30 0.60-1.20 mg/dl Est Creatinine Clear Calc Drug Dose 27.3 ml/min Estimated GFR () 43.3 Estimated GFR (Non- 37.4 BUN/Creatinine Ratio 15.9 10-20 Random Glucose 106 70-99 mg/dl Calcium Level 8.5 8.5-10.1 mg/dl Magnesium Level 2.0 1.8-2.4 mg/dl Total Bilirubin 0.3 0.2-1 mg/dl Direct Bilirubin 0.1 0-0.2 mg/dl Aspartate Amino Transf (AST/SGOT) 17 15-37 U/L Alanine Aminotransferase (ALT/SGPT) 18 12-78 U/L Alkaline Phosphatase 52 45-117 U/L Total Creatine Kinase 40 26-192 U/L Creatine Kinase MB 1.5 0.5-3.6 ng/ml Creatine Kinase MB Ratio 3.8 0-3.0 Total Protein 6.3 6.4-8.2 gm/dl Albumin 3.1 3.4-5.0 gm/dl Bedside Troponin I 0.090 0-0.045 ng/ml Bedside Glucose 116 70-90 mg/dl Diagnostic Radiology PELVIS XR IMPRESSION: Osteopenia and degenerative change as above. No fracture is seen involving the hips or bony pelvis. LUMBAR SPINE XR IMPRESSION: Degenerative change. Slight compression deformity superior endplate L4 considered to be old. CXR IMPRESSION: Developing emphysematous change as well as a potential right suprahilar nodule. CT chest suggested as follow-up. CT ABD/PELVIS IMPRESSION: 1. There is no evidence of solid organ injury in the abdomen or pelvis. 2. There is a [id number] and suspected acute appearing compression fracture of L5 with associated paravertebral edema. No retropulsed fragments are seen. 3. No additional acute fracture is seen. A mild compression deformity of L4 is unchanged from 2012. 4. Cardiomegaly, emphysema, and chronic change/bronchiectasis are seen at the lung bases. See report of chest CT performed concurrently for detailed intrathoracic findings. 5. Cholelithiasis and bilateral nephrolithiasis. 6. 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 7. Moderate to advanced colonic diverticulosis without CT evidence of acute diverticulitis. 8. Additional findings as above. CT CHEST IMPRESSION: 1. No suspicious pulmonary nodules. The possible right lung nodule shown on prior chest radiograph was artifactual. 2. No acute intrathoracic findings. 3. Moderate emphysema. 4. Old mild T3 compression fracture. Impression Assessment and Plan FALL, BACK PAIN, ACUTE L5 COMPRESSION FRACTURE - admit to tele - patient presenting with increasing low back pain x 2 days after sustaining a mechanical fall at home - CT showing an acute L5 compression fracture - pain control, PT/OT ELEVATED TROPONIN - ? clinical significance, no reports of chest pain, EKG unchanged - will continue to cycle cardiac enzymes and consider further work up if significant rise PANCYTOPENIA, HX MYELODYSPLASTIC SYNDROME - all labs at baseline - no signs of bleeding, no reported fevers - neutropenic precautions AAA - noted on CT abd - outpatient follow up COPD - oxygen and steroid dependent, continued tobacco use - hypoxia noted while patient walking back from the bathroom however did not have her oxygen on - patient reports breathing is at baseline - lung sounds coarse on exam, however likely chronic - for now will continue home dose of steroids and inhalers, nebs DM - diet controlled - hgb a1c 6.1 10/2016 - monitor glucose on daily labs HYPOTHYROIDISM - continue levothyroxine ANXIETY - continue home meds DVT PROPHYLAXIS - SCDs due to thrombocytopenia CODE STATUS - Patient is a DNR as per my discussion with her. DISPO - In my clinical judgment this beneficiary meets acute admission criteria, established by [facility], that includes being hospitalized through two midnights. Advanced Directives Existing Living Will: Yes Existing Power of Rn Lactation Consultant: Yes VTE Prophylaxis VTE Risk Assessment Done? Y/N: Yes Risk Level: Moderate Given or contraindicated: SCD's Note ATTENDING ADDENDUM Record reviewed. Patient interviewed and examined. Care coordinated with SHELBY Alva. Please refer to her documentation for patient's history. Briefly, 86 YO female with history of myelodysplastic syndrome, COPD, and other problems. Fell at home 2 days prior to admission and injured her low back. No associated cardiac or neuro symptoms; no LOC. EXAM: General- no acute distress VS- as noted HEENT- anicteric Neck- + JVD Lungs- diffuse moderate wheezing Heart- RRR Abdomen- + BS, soft, nontender Back- lumbar tenderness Extremities- no pretibial edema or calf tenderness Neuro- alert DATA: Lab studies as noted. ASSESSMENT AND PLAN: Fall with L5 compression fracture. Analgesics. PT. Check Vit D level. Serum troponin slightly elevated, probably secondary to fall. Doubt acute coronary syndrome. Myelodysplastic syndrome. No need for transfusion at this time. Please refer to DELVIS Menon's documentation for discussion of other issues. Richie Hopkins MD .
[2017-01-18] MEDS: LIDODERM (LIDOCAINE) PATCH 5% TD SCH (17:16)
[2017-01-18] MEDS: TRAMADOL HCL 50 MG TAB PO PRN (19:52)
[2017-01-18] MEDS: FLUTICASONE HFA 110MCG INHALER INH SCH (20:34)
[2017-01-18] MEDS: TRAZODONE HCL 50 MG TAB PO SCH (20:35)
[2017-01-18] MEDS: SIMVASTATIN 40 MG TAB PO SCH (20:36)
[2017-01-18] MEDS: MIRTAZAPINE TAB 15 MG TAB PO SCH (20:36)
[2017-01-18] MEDS: ALPRAZOLAM 0.5 MG TAB PO PRN (20:39)
[2017-01-18] MEDS: ACETAMINOPHEN 325 MG TAB PO PRN (23:47)
[2017-01-19] VITALS (15 sets, daily range): BP systolic 102–123; BP diastolic 64–81; PULSE 80–103; TEMP 36.2–37; O2SAT 86–97
[2017-01-19 00:26] LABS: URINE APPEARANCE CLEAR (CLEAR); URINE BILIRUBIN NEG (NEG); URINE COLOR YELLOW; URINE NITRITE NEG (NEG); URINE PH 6.5 (4.5-7.5); URINE SPECIFIC GRAVITY > 1.045 (1.000-1.030); UROBILINOGEN NEG (NEG); ZZUR CULT IF INDIC CLEAN CATCH NO
[2017-01-19 00:28] LABS: MANUAL MICROSCOPIC REQUIRED? NO; REVIEW REQ? NO
[2017-01-19] MEDS: TRAMADOL HCL 50 MG TAB PO PRN ×2 (01:54→08:05)
[2017-01-19] MEDS: LEVOTHYROXINE 88 MCG TAB PO SCH (05:49)
[2017-01-19 06:09] LABS: HEMATOCRIT 29.9 % (37-47); MEAN CELL VOLUME 110.7 fL (80-100); MEAN CORPUSCULAR HEMOGLOBIN 36.7 pg (25-34); MEAN CORPUSCULAR HGB CONC 33.1 g/dl (32-36); MEAN PLATELET VOLUME 9.5 fL (7.4-10.4); PLATELET COUNT 22 K/uL (130-400); WHITE BLOOD COUNT 1.55 K/uL (4.8-10.8)
[2017-01-19 06:26] LABS: CREATININE 1.1 mg/dl (0.60-1.20); POTASSIUM 4.3 mmol/L (3.5-5.1)
[2017-01-19 06:36] LABS: BUN/CREATININE RATIO 16.1 (10-20); COMPLETE YES; EOS % 2.6 %; IG% 0.6 %; LARGE PLATELETS 1+; LYMPH % 66.5 %; LYMPH ABS # 1.03 K/uL (1.2-3.4); MONO % 0.6 %; NEUT % 29.7 %; OVALOCYTES 2+; TEAR DROP CELLS 1+; TOXIC GRANULATION 1+; VACUOLIZATION OCCASIONAL
[2017-01-19 07:16] LABS: CALCIUM 8.5 mg/dl (8.5-10.1)
[2017-01-19] MEDS: ALBUT/IPRATROP 3MG/0.5MG NEB 3 ML VIAL INH SCH ×4 (07:50→19:36)
[2017-01-19] MEDS: FLUTICASONE HFA 110MCG INHALER INH SCH ×2 (07:59→20:40)
[2017-01-19] MEDS: MULTIVITAMIN TAB PO SCH (07:59)
[2017-01-19] MEDS: LIDODERM (LIDOCAINE) PATCH 5% TD SCH (08:00)
[2017-01-19] MEDS: PAROXETINE 30 MG TAB PO SCH (08:00)
[2017-01-19] MEDS: ALPRAZOLAM 0.5 MG TAB PO PRN ×2 (08:06→17:25)
--- NOTE | 2017-01-19 09:36 | Clinical Documentation Query ---
QUERY 1 OF [address] YOUNG, In your clinical opinion is this patient being managed for: ( X ) acute L5 vertebral osteoporotic fracture ( ) Other explanation of clinical findings (Please Explain) ( ) Unable to determine (Please Define) ( ) Need to Discuss ( ) Not Agree The medical record reflects the following clinical findings, treatment, and risk factors. Clinical Indicators: 86 yo postmenopausal female presenting after a ground level fall with an acute L5 vertebral fracture. Xrays and CT scans indicate osteopenic skeletal structures. Past medical history includes osteoporosis and pt with hx of prior L4 fracture. Treatment: pain control, PT/OT, multivitamin Risk Factors: age, hx of osteoporosis, ground level fall, chronic prednisone therapy for COPD Some fractures may occur d/t minor trauma or without any trauma at all. This type of fracture is generally predisposed by underlying conditions like metastatic disease, osteoporosis, and osteopenia. Only the physician can determine whether the fracture is out of proportion to the degree of trauma. QUERY 2 OF 2 In your clinical opinion is this patient being managed for: ( X) Chronic hypoxic respiratory failure ( ) Other explanation of clinical findings (Please Explain) ( ) Unable to determine (Please Define) ( ) Need to Discuss ( ) Not Agree The medical record reflects the following clinical findings, treatment, and risk factors. Clinical Indicators:H/P indicates pt with COPD that is oxygen and steroid dependent. Noted by ER to wear O2 2L/M, required slightly increased O2 3L in ER Treatment: Continue home O2 support, prednisone, flovent and duonebs, duoneb tx in ER Risk Factors: tobacco abuse, COPD Please clarify and document your clinical opinion in the progress notes and discharge summary. Terms such as "probable", "suspected", "likely", "questionable", "possible", or "still to be ruled out" are acceptable. IF IN AGREEMENT, YOU MUST DOCUMENT ABOVE DIAGNOSTIC STATEMENT IN DAILY PROGRESS NOTES AND DISCHARGE SUMMARY. This document is not part of the patient's record. Thank You, Sherly Huang, RN [phone]
[2017-01-19] MEDS: ACETAMINOPHEN 325 MG TAB PO PRN (10:01)
[2017-01-19] MEDS: MIRTAZAPINE TAB 15 MG TAB PO SCH (20:40)
[2017-01-19] MEDS: SIMVASTATIN 40 MG TAB PO SCH (20:40)
[2017-01-19] MEDS: TRAZODONE HCL 50 MG TAB PO SCH (20:40)
--- NOTE | 2017-01-19 21:24 | Progress Note ---
Medicine Progress Note Date & Time of Visit: Jan 19, 2017 at 09:50 . Subjective No fever. No chest pain. Chronic dyspnea at baseline. No nausea, vomiting, diarrhea. No urinary symptoms. Ongoing severe low back pain. . Objective Last 8 Hrs Date Time Temp Pulse Resp B/P (MAP) Pulse Ox O2 Delivery O2 Flow Rate FiO2 01/19/17 12:00 91 Nasal Cannula 2.0 01/19/17 11:28 36.4 88 22 110/72 (85) 91 Nasal Cannula 2.0 01/19/17 11:28 91 16 93 Nasal Cannula 2.0 01/19/17 08:09 36.2 94 22 120/73 (89) 90 Nasal Cannula 2.0 01/19/17 08:00 95 Room Air 01/19/17 07:51 91 16 86 Nasal Cannula 2.0 Physical Exam: General- uncomfortable Neck- + JVD Lungs- diffuse wheezing Heart- RRR Abdomen- + BS, soft, nontender Extremities- no pretibial edema or calf tenderness Neuro- alert . Laboratory Results: Last 24 Hours Test 01/18/17 16:16 01/18/17 17:51 01/18/17 20:08 01/19/17 00:00 Bedside Glucose 116 mg/dl 126 mg/dl Creatine Kinase MB 2.4 ng/ml Creatine Kinase MB Ratio Troponin I 0.122 ng/ml Urine Color YELLOW Urine Appearance CLEAR Urine pH 6.5 Urine Specific [place] > 1.045 Urine Protein NEG Urine Glucose (UA) NEG Urine Ketones NEG Urine Occult Blood TRACE Urine Nitrite NEG Urine Bilirubin NEG Urine Urobilinogen NEG Urine Leukocyte Esterase NEG Urine WBC (Auto) 1-5 /hpf Urine RBC (Auto) 0-4 /hpf Urine Hyaline Casts (Auto) 0 /lpf Urine Epithelial Cells (Auto) 10-20 /lpf Urine Bacteria (Auto) NEG Test 01/19/17 00:27 01/19/17 05:27 01/19/17 06:20 01/19/17 11:19 Creatine Kinase MB 1.9 ng/ml Troponin I 0.196 ng/ml 0.136 ng/ml White Blood Count 1.55 K/uL Red Blood Count 2.70 M/uL Hemoglobin 9.9 g/dL Hematocrit 29.9 % Mean Corpuscular Volume 110.7 fL Mean Corpuscular Hemoglobin 36.7 pg Mean Corpuscular Hemoglobin Concent 33.1 g/dl Platelet Count 22 K/uL Mean Platelet Volume 9.5 fL Neutrophils (%) (Auto) 29.7 % Lymphocytes (%) (Auto) 66.5 % Monocytes (%) (Auto) 0.6 % Eosinophils (%) (Auto) 2.6 % Basophils (%) (Auto) 0.0 % Neutrophils # (Auto) 0.46 K/uL Lymphocytes # (Auto) 1.03 K/uL Monocytes # (Auto) 0.01 K/uL Eosinophils # (Auto) 0.04 K/uL Basophils # (Auto) 0.00 K/uL RDW Standard Deviation 54.7 fL RDW Coefficient of Variation 13.5 % Immature Granulocyte % (Auto) 0.6 % Immature Granulocyte # (Auto) 0.01 K/uL Toxic Granulation 1+ Toxic Vacuolation OCCASIONAL Large Platelets 1+ Macrocytosis PRESENT Tear Drop Cells 1+ Ovalocytes 2+ Sodium Level 144 mmol/L Potassium Level 4.3 mmol/L Chloride Level 112 mmol/L Carbon Dioxide Level 28 mmol/L Anion Gap 4.0 mmol/L Blood Urea Nitrogen 18 mg/dl Creatinine 1.10 mg/dl Est Creatinine Clear Calc Drug Dose 32.3 ml/min Estimated GFR () 53.0 Estimated GFR (Non- 45.7 BUN/Creatinine Ratio 16.1 Random Glucose 100 mg/dl Calcium Level 8.5 mg/dl 25-Hydroxy Vitamin D Total 30.4 ng/ml Bedside Glucose 112 mg/dl 144 mg/dl Assessment & Plan ACUTE COMPRESSION FRACTURE L5 Secondary to fall. Continue analgesics, PT, OT. OSTEOPOROSIS 25-OH vitamin D level = 30. Discharge on calcium + D. COPD / CHRONIC HYPOXIC RESPIRATORY FAILURE Continue O2, prednisone, bronchodilators. CKD III Serum creatinine 1.3 --> 1.1. Avoid NSAID's and other potential nephrotoxins. DM TYPE 2 Diet controlled. Hgb A1C October 2016 was 6.1. Follow. MYELODYSPLASTIC SYNDROME Pancytopenia. No need for transfusion at this time. VTE PROPHYLAXIS No anticoagulants due to thrombocytopenia. SCD's. Ambulate. DISPOSITION Anticipated need for skilled care or inpatient rehab. Case Management consulted. Family Medicine follow-up with Dr. Howell. . Current Inpatient Medications: Current Inpatient Medications Medications (Trade) Dose Ordered Sig/Kathryn Route Start Time Stop Time Status Last Admin Dose Admin Ioversol (Optiray 320) 125 ml UD PRN IV 01/18/17 13:45 01/22/17 13:44 Acetaminophen (Tylenol Tab) 650 mg Q4H PRN PO 01/18/17 14:00 02/17/17 13:59 01/19/17 10:01 650 MG Ondansetron HCl (Zofran Inj) 4 mg Q6H PRN IV 01/18/17 14:00 02/17/17 13:59 Nitroglycerin (Nitrostat Tab) 0.4 mg UD PRN SL 01/18/17 14:00 02/17/17 13:59 Lidocaine (Lidoderm Patch 5%) 1 patch QAM TD 01/18/17 16:00 02/17/17 15:59 01/19/17 08:00 1 PATCH Miscellaneous (Remove Lidoderm Patch) 1 ea DAILY@21 N/A 01/18/17 23:00 02/17/17 22:59 01/18/17 23:03 1 EA Tramadol HCl (Ultram Tab) 50 mg Q6H PRN PO 01/18/17 15:15 02/17/17 15:14 01/19/17 08:05 50 MG Alprazolam (Xanax Tab) 0.5 mg TID PRN PO 01/18/17 15:15 02/17/17 15:14 01/19/17 08:06 0.5 MG Fluticasone Propionate (Flovent Hfa 110MCG Inhaler) 2 puffs BID INH 01/18/17 21:00 02/17/17 20:59 01/19/17 07:59 2 PUFFS Levothyroxine Sodium (Synthroid Tab) 88 mcg DAILYBB PO 01/19/17 06:00 02/18/17 06:59 01/19/17 05:49 88 MCG Mirtazapine (Remeron Tab) 15 mg HS PO 01/18/17 21:00 02/17/17 20:59 01/18/17 20:36 15 MG Multivitamins (Multivitamin Tab) 1 tab DAILY PO 01/19/17 09:00 02/18/17 08:59 01/19/17 07:59 1 TAB Prednisone (PredniSONE TAB) 5 mg DAILY PO 01/19/17 09:00 02/18/17 08:59 01/19/17 08:00 5 MG Simvastatin (Zocor Tab) 40 mg QPM PO 01/18/17 21:00 02/17/17 20:59 01/18/17 20:36 40 MG Trazodone HCl (Desyrel Tab) 50 mg HS PO 01/18/17 21:00 02/17/17 20:59 01/18/17 20:35 50 MG Paroxetine HCl (pAXil) 30 mg DAILY PO 01/19/17 09:00 02/18/17 08:59 01/19/17 08:00 30 MG Albuterol/ Ipratropium (Duoneb) 3 ml QIDR INH 01/18/17 16:00 02/17/17 15:59 01/19/17 11:27 3 ML
[2017-01-20] VITALS (9 sets, daily range): BP systolic 110–117; BP diastolic 68–74; PULSE 82–99; TEMP 36.6–36.8; O2SAT 90–96
[2017-01-20] MEDS: TRAMADOL HCL 50 MG TAB PO PRN ×2 (01:23→07:59)
[2017-01-20] MEDS: LEVOTHYROXINE 88 MCG TAB PO SCH (05:19)
[2017-01-20] MEDS: ALBUT/IPRATROP 3MG/0.5MG NEB 3 ML VIAL INH SCH ×3 (07:08→19:23)
[2017-01-20] MEDS: LIDODERM (LIDOCAINE) PATCH 5% TD SCH (07:59)
[2017-01-20] MEDS: MULTIVITAMIN TAB PO SCH (07:59)
[2017-01-20] MEDS: PAROXETINE 30 MG TAB PO SCH (07:59)
[2017-01-20] MEDS: FLUTICASONE HFA 110MCG INHALER INH SCH ×2 (08:00→22:15)
[2017-01-20] MEDS: ALPRAZOLAM 0.5 MG TAB PO PRN (12:49)
[2017-01-20] MEDS ORDERED: NICOTINE 7 MG/24 HR TDSY TD ONE (15:30)
[2017-01-20] MEDS ORDERED: MAGNESIUM HYDROXIDE SUSP 30 ML UDC PO PRN (15:30)
[2017-01-20] MEDS ORDERED: MAGNESIUM HYDROXIDE SUSP 30 ML UDC PO SCH (15:30)
--- NOTE | 2017-01-20 16:00 | Hospitalist Progress Note ---
Hospitalist Progress Note Date of Service Jan 20, 2017 ~ 12:00 (Jacquie Menon CRNP) Subjective Patient seen and examined. Reports feeling much better today. She was able to walk around her bed. Back pain well controlled. Breathing at baseline. Denies chest pain. Reports constipation. (Jacquie Menon CRNP) (Richie Hopkins M.D.) Objective Vital Signs Date Time Temp Pulse Resp B/P (MAP) Pulse Ox O2 Delivery O2 Flow Rate FiO2 01/20/17 12:00 Nasal Cannula 2.0 01/20/17 11:25 36.7 93 18 110/71 (84) 92 Nasal Cannula 2.0 01/20/17 11:03 82 16 94 Nasal Cannula 2.0 01/20/17 08:00 Nasal Cannula 2.0 01/20/17 07:33 36.6 90 20 110/68 (82) 96 2.0 01/20/17 07:08 91 16 90 Nasal Cannula 2.0 01/20/17 04:02 36.6 99 24 117/72 (87) 92 Nasal Cannula 2.0 01/20/17 04:00 Nasal Cannula 2.0 01/19/17 23:59 92 Nasal Cannula 2.0 01/19/17 23:53 36.5 103 20 104/65 (78) 92 Nasal Cannula 2.0 01/19/17 20:20 Nasal Cannula 2.0 01/19/17 19:25 80 16 96 Nasal Cannula 2.0 01/19/17 18:41 36.2 99 26 123/81 (95) 97 Nasal Cannula 3.0 01/19/17 16:09 Nasal Cannula 2.0 (Jacquie Menon CRNP) Physical Exam General Appearance: no apparent distress Eyes: normal inspection ENT: hearing grossly normal Neck: supple, no JVD Respiratory/Chest: no respiratory distress, + wheezing (scattered, faint end expitatory) Cardiovascular: regular rate, rhythm, no edema Abdomen: normal bowel sounds, non tender, soft, + distended Neurologic/Psychiatric: no motor/sensory deficits, alert, normal mood/affect, oriented x 3 Skin: normal color, warm/dry (Jaqcuie Menon CRNP) Laboratory Results Last 24 Hours Test 01/19/17 16:20 01/19/17 20:21 01/20/17 06:33 Bedside Glucose 134 mg/dl 121 mg/dl 118 mg/dl (Jacquie Menon CRNP) Assessment and Plan FALL, BACK PAIN, ACUTE L5 COMPRESSION FRACTURE - admitted to tele - will transfer to med/surg today - CT showing an acute L5 compression fracture - pain control, PT/OT; noted good pain control with Lidoderm patch and Tramadol ELEVATED TROPONIN - ? clinical significance, no reports of chest pain, EKG unchanged - enzymes cycled, no significant rise; likely due to fall PANCYTOPENIA, HX MYELODYSPLASTIC SYNDROME - all labs at baseline - no signs of bleeding, no reported fevers - neutropenic precautions AAA - noted on CT abd - outpatient follow up COPD - oxygen and steroid dependent, continued tobacco use - patient reports breathing is at baseline - on home doses of steroids and inhalers, nebs DM - diet controlled - hgb a1c 6.1 10/2016 - blood sugars controlled while hospitalized HYPOTHYROIDISM - continue levothyroxine ANXIETY - continue home meds DVT PROPHYLAXIS - SCDs due to thrombocytopenia CODE STATUS - Patient is a DNR as per my discussion with her on admission. DISPO - Expect d/c to [facility] vs. [facility] pending insurance approval - per oncology - no need for neutropenic precautions at SNF (Jacquie Menon CRNP) ATTENDING ADDENDUM Record reviewed. Patient interviewed and examined. Care coordinated with SHELBY Alva. Please refer to her documentation for patient's history. Low back pain slightly improved. Dyspneic with exertion, but no worse than baseline. EXAM: General- no acute distress VS- as noted Lungs- diffuse wheezing Heart- RRR Abdomen- + BS, soft, nontender Extremities- no pretibial edema or calf tenderness Neuro- alert DATA: Lab studies as noted. ASSESSMENT AND PLAN: Fall with L5 compression fracture. Continue analgesics, PT, OT. Serum troponin slightly elevated, probably secondary to fall. Doubt acute coronary syndrome. Myelodysplastic syndrome. No need for transfusion at this time. Please refer to DELVIS Menon's documentation for discussion of other issues. Richie Hopkins MD . (Richie Hopkins M.D.)
[2017-01-20] MEDS: TRAZODONE HCL 50 MG TAB PO SCH (22:15)
[2017-01-20] MEDS: MIRTAZAPINE TAB 15 MG TAB PO SCH (22:15)
[2017-01-20] MEDS: SIMVASTATIN 40 MG TAB PO SCH (22:15)
[2017-01-21] VITALS (7 sets, daily range): BP systolic 114–119; BP diastolic 63–75; PULSE 62–101; TEMP 36.4–37.1; O2SAT 90–97
[2017-01-21] MEDS: TRAMADOL HCL 50 MG TAB PO PRN ×3 (01:53→20:34)
[2017-01-21] MEDS: ACETAMINOPHEN 325 MG TAB PO PRN (04:01)
[2017-01-21] MEDS: LEVOTHYROXINE 88 MCG TAB PO SCH (06:09)
[2017-01-21] MEDS: ALBUT/IPRATROP 3MG/0.5MG NEB 3 ML VIAL INH SCH ×4 (07:11→19:17)
[2017-01-21] MEDS: MULTIVITAMIN TAB PO SCH (08:45)
[2017-01-21] MEDS: NICOTINE 7 MG/24 HR TDSY TD SCH (08:45)
[2017-01-21] MEDS: FLUTICASONE HFA 110MCG INHALER INH SCH ×2 (08:45→20:34)
[2017-01-21] MEDS: LIDODERM (LIDOCAINE) PATCH 5% TD SCH (08:45)
[2017-01-21] MEDS: PAROXETINE 30 MG TAB PO SCH (09:35)
[2017-01-21] MEDS: ALPRAZOLAM 0.5 MG TAB PO PRN (14:38)
[2017-01-21] MEDS: TRAZODONE HCL 50 MG TAB PO SCH (20:35)
[2017-01-21] MEDS: ALPRAZOLAM 0.5 MG TAB PO SCH (20:35)
[2017-01-21] MEDS: SIMVASTATIN 40 MG TAB PO SCH (20:35)
[2017-01-21] MEDS: MIRTAZAPINE TAB 15 MG TAB PO SCH (20:36)
--- NOTE | 2017-01-21 22:49 | Progress Note ---
Medicine Progress Note Date & Time of Visit: Jan 21, 2017 at 14:30 . Subjective Back pain improved. Needs assistance with ADL's. No fever. No chest pain. Dyspneic with minimal exertion, but pt indicates no different than baseline. No nausea or vomiting. . Objective Last 8 Hrs Date Time Temp Pulse Resp B/P (MAP) Pulse Ox O2 Delivery O2 Flow Rate FiO2 01/21/17 20:00 Nasal Cannula 2.0 01/21/17 19:17 62 16 97 Nasal Cannula 2.0 01/21/17 16:10 Nasal Cannula 2.0 01/21/17 15:31 36.4 93 22 119/70 (86) 90 3.0 01/21/17 15:13 62 16 97 Nasal Cannula 3.0 Physical Exam: General- no acute distress Neck- + JVD Lungs- diffuse wheezing Heart- RRR Abdomen- + BS, soft, nontender Extremities- no pretibial edema or calf tenderness Neuro- alert . Laboratory Results: Last 24 Hours Test 01/21/17 07:09 01/21/17 11:24 01/21/17 16:18 01/21/17 20:23 Bedside Glucose 117 mg/dl 129 mg/dl 109 mg/dl 161 mg/dl Assessment & Plan ACUTE COMPRESSION FRACTURE L5 Osteoporotic compression fracture L5 secondary to fall. Continue analgesics, PT, OT. OSTEOPOROSIS 25-OH vitamin D level = 30. Discharge on calcium + D. COPD / CHRONIC HYPOXIC RESPIRATORY FAILURE Continue O2, prednisone, bronchodilators. CKD III Serum creatinine 1.3 --> 1.1. Avoid NSAID's and other potential nephrotoxins. DM TYPE 2 Diet controlled. Hgb A1C October 2016 was 6.1. Follow. MYELODYSPLASTIC SYNDROME Pancytopenia. No need for transfusion at this time. VTE PROPHYLAXIS No anticoagulants due to thrombocytopenia. SCD's. Ambulate. DISPOSITION Anticipated need for skilled care or inpatient rehab. Case Management consulted. Family Medicine follow-up with Dr. Howell. . Current Inpatient Medications: Current Inpatient Medications Medications (Trade) Dose Ordered Sig/Kathryn Route Start Time Stop Time Status Last Admin Dose Admin Ioversol (Optiray 320) 125 ml UD PRN IV 01/18/17 13:45 01/22/17 13:44 Acetaminophen (Tylenol Tab) 650 mg Q4H PRN PO 01/18/17 14:00 7/28/17 13:59 01/21/17 04:01 650 MG Ondansetron HCl (Zofran Inj) 4 mg Q6H PRN IV 01/18/17 14:00 02/17/17 13:59 Nitroglycerin (Nitrostat Tab) 0.4 mg UD PRN SL 01/18/17 14:00 02/17/17 13:59 Lidocaine (Lidoderm Patch 5%) 1 patch QAM TD 01/18/17 16:00 02/17/17 15:59 01/21/17 08:45 1 PATCH Miscellaneous (Remove Lidoderm Patch) 1 ea DAILY@21 N/A 01/18/17 23:00 02/17/17 22:59 01/21/17 20:36 1 EA Tramadol HCl (Ultram Tab) 50 mg Q6H PRN PO 01/18/17 15:15 02/17/17 15:14 01/21/17 20:34 50 MG Fluticasone Propionate (Flovent Hfa 110MCG Inhaler) 2 puffs BID INH 01/18/17 21:00 02/17/17 20:59 01/21/17 20:34 2 PUFFS Levothyroxine Sodium (Synthroid Tab) 88 mcg DAILYBB PO 01/19/17 06:00 02/18/17 06:59 01/21/17 06:09 88 MCG Mirtazapine (Remeron Tab) 15 mg HS PO 01/18/17 21:00 02/17/17 20:59 01/21/17 20:36 15 MG Multivitamins (Multivitamin Tab) 1 tab DAILY PO 01/19/17 09:00 02/18/17 08:59 01/21/17 08:45 1 TAB Prednisone (PredniSONE TAB) 5 mg DAILY PO 01/19/17 09:00 02/18/17 08:59 01/21/17 08:45 5 MG Simvastatin (Zocor Tab) 40 mg QPM PO 01/18/17 21:00 02/17/17 20:59 01/21/17 20:35 40 MG Trazodone HCl (Desyrel Tab) 50 mg HS PO 01/18/17 21:00 02/17/17 20:59 01/21/17 20:35 50 MG Paroxetine HCl (pAXil) 30 mg DAILY PO 01/19/17 09:00 02/18/17 08:59 01/21/17 09:35 30 MG Albuterol/ Ipratropium (Duoneb) 3 ml QIDR INH 01/18/17 16:00 02/17/17 15:59 01/21/17 19:17 3 ML Magnesium Hydroxide (Milk Of Magnesia Susp) 30 ml Q12H PRN PO 01/20/17 15:30 02/19/17 15:29 Nicotine (Nicoderm Cq 7 Mg Patch) 1 patch QAM TD 01/21/17 09:00 02/20/17 08:59 01/21/17 08:45 1 PATCH Miscellaneous (Remove Nicoderm Patch) 1 ea HS N/A 01/20/17 21:00 02/19/17 20:59 01/21/17 20:36 1 EA Alprazolam (Xanax Tab) 0.5 mg TID PO 01/21/17 21:00 02/17/17 15:14 01/21/17 20:35 0.5 MG
[2017-01-22] VITALS (9 sets, daily range): BP systolic 110–114; BP diastolic 69–75; PULSE 76–115; TEMP 36.7–36.8; O2SAT 84–99
[2017-01-22] MEDS: LEVOTHYROXINE 88 MCG TAB PO SCH (06:05)
[2017-01-22] MEDS: ALBUT/IPRATROP 3MG/0.5MG NEB 3 ML VIAL INH SCH ×4 (07:22→19:44)
[2017-01-22] MEDS: NICOTINE 7 MG/24 HR TDSY TD SCH (08:34)
[2017-01-22] MEDS: ALPRAZOLAM 0.5 MG TAB PO SCH ×3 (08:34→20:28)
[2017-01-22] MEDS: FLUTICASONE HFA 110MCG INHALER INH SCH ×2 (08:34→20:23)
[2017-01-22] MEDS: PAROXETINE 30 MG TAB PO SCH (08:34)
[2017-01-22] MEDS: LIDODERM (LIDOCAINE) PATCH 5% TD SCH (08:34)
[2017-01-22] MEDS: MULTIVITAMIN TAB PO SCH (08:34)
[2017-01-22] MEDS: TRAMADOL HCL 50 MG TAB PO PRN ×2 (08:38→19:45)
--- NOTE | 2017-01-22 17:23 | Progress Note ---
Medicine Progress Note Date & Time of Visit: Jan 22, 2017 at 16:20 . Subjective Low back pain better. Lidocaine patch and tramadol seem to be helping. Needs assistance with ADL's. No fever. Respiratory status stable- GAFFNEY with minimal exertion. No nausea or vomiting. No BM today. . Objective Last 8 Hrs Date Time Temp Pulse Resp B/P (MAP) Pulse Ox O2 Delivery O2 Flow Rate FiO2 01/22/17 15:21 85 16 90 Nasal Cannula 2.0 01/22/17 15:06 36.8 86 16 110/71 (84) 90 Nasal Cannula 2.0 01/22/17 11:17 76 16 91 Nasal Cannula 2.0 Physical Exam: General- no acute distress Neck- + JVD Lungs- diffuse wheezing Heart- RRR Abdomen- + BS, soft, nontender Back- low lumbar tenderness Extremities- no pretibial edema or calf tenderness Neuro- alert . Laboratory Results: Last 24 Hours Test 01/21/17 20:23 01/22/17 07:33 01/22/17 11:33 01/22/17 16:33 Bedside Glucose 161 mg/dl 100 mg/dl 123 mg/dl 116 mg/dl Assessment & Plan ACUTE COMPRESSION FRACTURE L5 Osteoporotic compression fracture L5 secondary to fall. Not candidate for consideration of surgical intervention. Not candidate for back brace due to severe COPD. Continue lidocaine patch + tramadol PRN. Continue PT, OT. OSTEOPOROSIS 25-OH vitamin D level = 30. Discharge on calcium + D. COPD / CHRONIC HYPOXIC RESPIRATORY FAILURE Continue O2, prednisone, bronchodilators. CKD III Serum creatinine 1.3 --> 1.1. Avoid NSAID's and other potential nephrotoxins. DM TYPE 2 Diet controlled. Hgb A1C October 2016 was 6.1. Follow. MYELODYSPLASTIC SYNDROME Pancytopenia. No need for transfusion at this time. No need for contact precautions per Heme / Onc. VTE PROPHYLAXIS No anticoagulants due to thrombocytopenia. SCD's. Ambulate. DISPOSITION Needs assistance with ADL's. Anticipated need for skilled care or inpatient rehab. Case Management consulted. Family Medicine follow-up with Dr. Howell. . Current Inpatient Medications: Current Inpatient Medications Medications (Trade) Dose Ordered Sig/Kathryn Route Start Time Stop Time Status Last Admin Dose Admin Acetaminophen (Tylenol Tab) 650 mg Q4H PRN PO 01/18/17 14:00 02/17/17 13:59 01/21/17 04:01 650 MG Ondansetron HCl (Zofran Inj) 4 mg Q6H PRN IV 01/18/17 14:00 02/17/17 13:59 Nitroglycerin (Nitrostat Tab) 0.4 mg UD PRN SL 01/18/17 14:00 02/17/17 13:59 Lidocaine (Lidoderm Patch 5%) 1 patch QAM TD 01/18/17 16:00 02/17/17 15:59 01/22/17 08:34 1 PATCH Miscellaneous (Remove Lidoderm Patch) 1 ea DAILY@21 N/A 01/18/17 23:00 02/17/17 22:59 01/21/17 20:36 1 EA Tramadol HCl (Ultram Tab) 50 mg Q6H PRN PO 01/18/17 15:15 02/17/17 15:14 01/22/17 08:38 50 MG Fluticasone Propionate (Flovent Hfa 110MCG Inhaler) 2 puffs BID INH 01/18/17 21:00 02/17/17 20:59 01/22/17 08:34 2 PUFFS Levothyroxine Sodium (Synthroid Tab) 88 mcg DAILYBB PO 01/19/17 06:00 02/18/17 06:59 01/22/17 06:05 88 MCG Mirtazapine (Remeron Tab) 15 mg HS PO 01/18/17 21:00 02/17/17 20:59 01/21/17 20:36 15 MG Multivitamins (Multivitamin Tab) 1 tab DAILY PO 01/19/17 09:00 02/18/17 08:59 01/22/17 08:34 1 TAB Prednisone (PredniSONE TAB) 5 mg DAILY PO 01/19/17 09:00 02/18/17 08:59 01/22/17 08:34 5 MG Simvastatin (Zocor Tab) 40 mg QPM PO 01/18/17 21:00 02/17/17 20:59 01/21/17 20:35 40 MG Trazodone HCl (Desyrel Tab) 50 mg HS PO 01/18/17 21:00 02/17/17 20:59 01/21/17 20:35 50 MG Paroxetine HCl (pAXil) 30 mg DAILY PO 01/19/17 09:00 02/18/17 08:59 01/22/17 08:34 30 MG Albuterol/ Ipratropium (Duoneb) 3 ml QIDR INH 01/18/17 16:00 02/17/17 15:59 01/22/17 15:20 3 ML Magnesium Hydroxide (Milk Of Magnesia Susp) 30 ml Q12H PRN PO 01/20/17 15:30 02/19/17 15:29 Nicotine (Nicoderm Cq 7 Mg Patch) 1 patch QAM TD 01/21/17 09:00 02/20/17 08:59 01/22/17 08:34 1 PATCH Miscellaneous (Remove Nicoderm Patch) 1 ea HS N/A 01/20/17 21:00 02/19/17 20:59 01/21/17 20:36 1 EA Alprazolam (Xanax Tab) 0.5 mg TID PO 01/21/17 21:00 02/17/17 15:14 01/22/17 14:12 0.5 MG
[2017-01-22] MEDS: MIRTAZAPINE TAB 15 MG TAB PO SCH (20:26)
[2017-01-22] MEDS: TRAZODONE HCL 50 MG TAB PO SCH (20:26)
[2017-01-22] MEDS: SIMVASTATIN 40 MG TAB PO SCH (20:27)
[2017-01-23] VITALS: O2SAT 84
[2017-01-23] MEDS: TRAMADOL HCL 50 MG TAB PO PRN ×2 (05:53→12:48)
[2017-01-23] MEDS: LEVOTHYROXINE 88 MCG TAB PO SCH (05:53)
[2017-01-23 07:43] VITALS: PULSE 86; O2SAT 93
[2017-01-23] MEDS: ALBUT/IPRATROP 3MG/0.5MG NEB 3 ML VIAL INH SCH ×2 (07:43→11:05)
[2017-01-23 07:48] VITALS: BP 116/74; PULSE 86; TEMP 36.7; O2SAT 90
[2017-01-23] MEDS: MULTIVITAMIN TAB PO SCH (07:54)
[2017-01-23] MEDS: PAROXETINE 30 MG TAB PO SCH (07:54)
[2017-01-23] MEDS: FLUTICASONE HFA 110MCG INHALER INH SCH (07:55)
[2017-01-23] MEDS: LIDODERM (LIDOCAINE) PATCH 5% TD SCH (07:55)
[2017-01-23] MEDS: NICOTINE 7 MG/24 HR TDSY TD SCH (07:55)
[2017-01-23] MEDS: ALPRAZOLAM 0.5 MG TAB PO SCH (08:00)
[2017-01-23 11:05] VITALS: PULSE 82; O2SAT 90
[2017-01-23] MEDS ORDERED: TRAM-10 PO (13:26)
[2017-01-23] MEDS ORDERED: CALC200T PO (13:26)
[2017-01-23] MEDS ORDERED: ACET-1138 PO (13:26)
--- NOTE | 2017-01-23 13:36 | Discharge Instructions ---
Discharge Instructions Date of Service Jan 23, 2017. Admission Reason for Admission: fall, back pain . Discharge Discharge Diagnosis / Problem: back pain due to compression fracture of L5 backbone Discharge Goals Goal(s): Decrease discomfort, Improve function Activity Recommendations Activity Limitations: as noted below Lifting Limitations: no more than 10 pounds Shower/Bathe: no limitations . Instructions / Follow-Up Instructions / Follow-Up APPOINTMENTS: FAMILY MEDICINE 01/30/2017 3:10 PM Christiano Howell MD INSTRUCTIONS: You have a compression fracture (collapsed back bone) in your lower back. No heavy lifting. Take the following for pain: Extra Strength Tylenol 2 pills every 8 hours as needed for moderate pain. Tramadol (Ultram) 50 mg every 8 hours as needed for severe pain. Take calcium with vitamin D twice a day to keep your bones strong. [Prescriptions sent to [facility] in [place].] Continue oxygen as before. Please do not smoke. NEVER smoke when oxygen is being used. Seek medical attention if you have: * temperature above 101 * chest pain or trouble breathing * abdominal pain, nausea, vomiting * diarrhea, dark stools or bloody stools * any unanswered questions or concerns Call 911 if symptoms are severe. Call if you have any questions or problems. My cell # is [phone]. You can also reach a [facility] hospitalist on duty at [facility] 24 hours a day by calling [phone]. Please take good care of yourself. Richie Hopkins . Current Hospital Diet Patient's current hospital diet: AHA Diet (Heart Healthy), Diabetes Type 2 Diet Discharge Diet Recommended Diet: AHA Diet (Heart Healthy) Pending Studies Studies pending at discharge: no Medical Emergencies . Who to Call and When: Medical Emergencies: If at any time you feel your situation is an emergency, please call 911 immediately. . Non-Emergent Contact Non-Emergency issues call your: Primary Care Provider, Hospital Doctor . . "Provider Documentation" section prepared by Richie Hopkins. . VTE Core Measure Inpt VTE Proph given/why not?: SCD's [place] Drug Monitoring Program Search Results: patient reviewed within database, no issues identified
[2017-01-23 13:39] VITALS: BP 116/74; PULSE 82; TEMP 36.7; O2SAT 90
--- NOTE | 2017-01-23 23:30 | Progress Note ---
Medicine Progress Note Date & Time of Visit: Jan 23, 2017 at 09:20 . Subjective Patient insists on being discharged to home. She is not interested in skilled care or inpatient rehabilitation. She does not wish to have home health nursing for therapy services. Afebrile. Back pain improved. Dyspnea at baseline. . Objective Last 8 Hrs Date Time Temp Pulse Resp B/P (MAP) Pulse Ox O2 Delivery O2 Flow Rate FiO2 01/23/17 11:05 82 16 90 Nasal Cannula 2.0 01/23/17 10:53 Nasal Cannula 2.0 01/23/17 07:48 36.7 86 20 116/74 (88) 90 Nasal Cannula 2.0 01/23/17 07:43 86 16 93 Nasal Cannula 2.0 Physical Exam: General- no acute distress Neck- + JVD Lungs- diffuse wheezing Heart- RRR Abdomen- + BS, soft, nontender Back- mild low lumbar tenderness Extremities- no pretibial edema or calf tenderness Neuro- alert; motor strength lower extremities 5/5 . Laboratory Results: Last 24 Hours Test 01/22/17 16:33 01/22/17 19:48 01/23/17 07:42 01/23/17 11:35 Bedside Glucose 116 mg/dl 118 mg/dl 102 mg/dl 126 mg/dl Assessment & Plan ACUTE COMPRESSION FRACTURE L5 Osteoporotic compression fracture L5 secondary to fall. Not candidate for consideration of surgical intervention. Not candidate for back brace due to severe COPD. Received analgesics, PT, OT. OSTEOPOROSIS 25-OH vitamin D level = 30. Discharge on calcium + D. COPD / CHRONIC HYPOXIC RESPIRATORY FAILURE Continue O2, prednisone, bronchodilators. CKD III Serum creatinine 1.3 --> 1.1. Avoid NSAID's and other potential nephrotoxins. DM TYPE 2 Diet controlled. Hgb A1C October 2016 was 6.1. Follow. MYELODYSPLASTIC SYNDROME Pancytopenia. No need for transfusion at this time. No need for contact precautions per Heme / Onc. VTE PROPHYLAXIS No anticoagulants due to thrombocytopenia. SCD's. Ambulate. DISPOSITION Skilled care or inpatient rehab recommended. Case Management consulted. Patient insists on being discharged to home. She is not interested in skilled care or inpatient rehabilitation. She does not wish to have home health nursing for therapy services. Discharge to home. Family Medicine follow-up with Dr. Howell. . Current Inpatient Medications: Current Inpatient Medications Medications (Trade) Dose Ordered Sig/Kathryn Route Start Time Stop Time Status Last Admin Dose Admin Acetaminophen (Tylenol Tab) 650 mg Q4H PRN PO 01/18/17 14:00 02/17/17 13:59 01/21/17 04:01 650 MG Ondansetron HCl (Zofran Inj) 4 mg Q6H PRN IV 01/18/17 14:00 02/17/17 13:59 Nitroglycerin (Nitrostat Tab) 0.4 mg UD PRN SL 01/18/17 14:00 02/17/17 13:59 Lidocaine (Lidoderm Patch 5%) 1 patch QAM TD 01/18/17 16:00 02/17/17 15:59 01/23/17 07:55 1 PATCH Miscellaneous (Remove Lidoderm Patch) 1 ea DAILY@21 N/A 01/18/17 23:00 02/17/17 22:59 01/22/17 20:24 1 EA Tramadol HCl (Ultram Tab) 50 mg Q6H PRN PO 01/18/17 15:15 02/17/17 15:14 01/23/17 12:48 50 MG Fluticasone Propionate (Flovent Hfa 110MCG Inhaler) 2 puffs BID INH 01/18/17 21:00 02/17/17 20:59 01/23/17 07:55 2 PUFFS Levothyroxine Sodium (Synthroid Tab) 88 mcg DAILYBB PO 01/19/17 06:00 02/18/17 06:59 01/23/17 05:53 88 MCG Mirtazapine (Remeron Tab) 15 mg HS PO 01/18/17 21:00 02/17/17 20:59 01/22/17 20:26 15 MG Multivitamins (Multivitamin Tab) 1 tab DAILY PO 01/19/17 09:00 02/18/17 08:59 01/23/17 07:54 1 TAB Prednisone (PredniSONE TAB) 5 mg DAILY PO 01/19/17 09:00 02/18/17 08:59 01/23/17 07:54 5 MG Simvastatin (Zocor Tab) 40 mg QPM PO 01/18/17 21:00 02/17/17 20:59 01/22/17 20:27 40 MG Trazodone HCl (Desyrel Tab) 50 mg HS PO 01/18/17 21:00 02/17/17 20:59 01/22/17 20:26 50 MG Paroxetine HCl (pAXil) 30 mg DAILY PO 01/19/17 09:00 02/18/17 08:59 01/23/17 07:54 30 MG Albuterol/ Ipratropium (Duoneb) 3 ml QIDR INH 01/18/17 16:00 02/17/17 15:59 01/23/17 11:05 3 ML Magnesium Hydroxide (Milk Of Magnesia Susp) 30 ml Q12H PRN PO 01/20/17 15:30 02/19/17 15:29 Nicotine (Nicoderm Cq 7 Mg Patch) 1 patch QAM TD 01/21/17 09:00 02/20/17 08:59 01/23/17 07:55 1 PATCH Miscellaneous (Remove Nicoderm Patch) 1 ea HS N/A 01/20/17 21:00 02/19/17 20:59 01/22/17 20:24 1 EA Alprazolam (Xanax Tab) 0.5 mg TID PO 01/21/17 21:00 02/17/17 15:14 01/23/17 08:00 0.5 MG
--- NOTE | 2017-01-24 06:27 | Discharge Summary ---
Discharge Summary Date of Service Jan 24, 2017. Discharge Summary Admission Date: Jan 18, 2017 at 14:00 Discharge Date: Jan 23, 2017 Discharge Disposition: Home Principal Diagnosis: osteoporotic compression fracture L5 . 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 Status: Chronic (4) Depression Status: Chronic (5) DM type 2 (diabetes mellitus, type 2) Status: Chronic (6) Dyslipidemia Status: Chronic (7) Generalized anxiety disorder Status: Chronic (8) History of renal stone Status: Chronic (9) Hypothyroidism Status: Chronic (10) Myelodysplastic disease Status: Chronic (11) Osteoporosis Status: Chronic (12) Pancytopenia Status: Chronic (13) Raynauds syndrome Status: Chronic (14) Tobacco abuse Status: Chronic (15) Vitamin D deficiency Status: Chronic Surgical Problems: (1) History of cataract surgery Status: Resolved (2) History of open reduction and internal fixation (ORIF) procedure Permanent Comment: ORIF left humerus fracture 2010 Status: Resolved (3) History of parotid gland removal Permanent Comment: 2010, benign Status: Resolved (4) Hx of tubal ligation Status: Resolved . Procedures: CT pelvis CT chest PT OT . Medication Reconciliation New Medications: Acetaminophen (Tylenol Extra Strength) 500 Mg Tab 2 TAB PO Q8 PRN for moderate pain, #100 TAB no prescription necessary . Calcium Carbonate-Vitamin D (Oscal 500/200 D-3) 1 Tab Tab 1 TAB PO BID, #60 TAB no prescription necessary Tramadol (Ultram) 50 Mg Tab 50 MG PO Q8 PRN for severe pain, #30 TAB 1 Refill Continued Medications: Albuterol Hfa (Ventolin Hfa) 200 Puffs/52781 Mcg Aers 2-4 PUFFS INH Q6H PRN for SOB/Wheezing, #1 INHALER Albuterol Sulf (Albuterol Sulfate) 2.5 Mg/3 Ml Nebu 1 DOSE INH Q4 PRN for Wheezing Alprazolam (Alprazolam) 0.5 Mg Tab 0.5 MG PO TID, #90 Fluticasone Propionate (Flovent Hfa) 120 Puffs/11209 Mcg Aero 2 PUFFS INH BID for 30 Days, #1 INHALER 2 Refills Levothyroxine Sodium (Levothyroxine Sodium) 88 Mcg Tab 1 TAB PO DAILY for 30 Days, #30 TAB 5 Refills Mirtazapine (Remeron) 15 Mg Tab 1 TAB PO HS for 30 Days, #30 TAB 1 Refill Multiple Vitamin (Multivitamin) 1 Tab Tab 1 TAB PO DAILY, TAB Paroxetine (Paroxetine HCl) 30 Mg Tab 30 MG PO DAILY, #30 Prednisone (Prednisone) 5 Mg Tab 5 MG PO DAILY Simvastatin (Zocor) 40 Mg Tab 40 MG PO QPM Tiotropium [place] (Spiriva Handihaler) 5 Puff/90 Mcg Aerp 18 MCG INH DAILY Trazodone Hcl (Desyrel) 50 Mg Tab 50 MG PO HS, TAB Admission Information HPI (per Admitting provider): 86 year old female who presents to the ER after a fall and back pain. Patient reports she fell two days ago. She was in her bedroom standing at the window turning off the AC and when she turned around she fell to the floor landing on her buttocks. She reports the pain was tolerable at that point and she was able to get up and get to bed. She denies any associated lightheadedness or dizziness. She did not strike her head or loose consciousness. She denies any associated chest pain. She has chronic exertional shortness of breath which she reports if unchanged. She also has a chronic cough which is unchanged as well. She reports the pain has progressively gotten worse over the past two days. Pain is located in her lower back. She denies any radiation of the pain into her legs. She denies any bowel or bladder difficulties. No lower extremity weakness, numbness, or tingling. She denies fever and chills. No abdominal pain , nausea, vomiting, or diarrhea. She denies urinary symptoms. While walking to the bathroom in the ER, patient insisted on going without her oxygen, when she retuned she was saturating 80% on room air. This improved once oxygen was reapplied. CT abd/pelvis is showing an acute L5 compression fractures. Labs show a pancytopenia which is chronic for her. She was given Tramadol and Tylenol for her pain and she reports much improvement. . Physical Exam (per Admitting): General Appearance: no apparent distress Head: normocephalic Eyes: normal inspection ENT: hearing grossly normal Neck: supple, no JVD Respiratory/Chest: no respiratory distress, + decreased breath sounds, + pertinent finding (scattered coarse breath sounds) Cardiovascular: regular rate, rhythm, no edema Abdomen/GI: normal bowel sounds, non tender, soft Extremities/Musculoskelatal: normal inspection, no calf tenderness Neurologic/Psych: no motor/sensory deficits, alert, normal mood/affect, oriented x 3 Skin: normal color, warm/dry Hospital Course ACUTE COMPRESSION FRACTURE L5 Osteoporotic compression fracture L5 secondary to fall. Not candidate for consideration of surgical intervention. Not candidate for back brace due to severe COPD. Received analgesics, PT, OT. OSTEOPOROSIS 25-OH vitamin D level = 30. Discharge on calcium + D. COPD / CHRONIC HYPOXIC RESPIRATORY FAILURE Continue O2, prednisone, bronchodilators. CKD III Serum creatinine 1.3 --> 1.1. Avoid NSAID's and other potential nephrotoxins. DM TYPE 2 Diet controlled. Hgb A1C October 2016 was 6.1. Follow. MYELODYSPLASTIC SYNDROME Pancytopenia. No need for transfusion at this time. No need for contact precautions per Heme / Onc. VTE PROPHYLAXIS No anticoagulants due to thrombocytopenia. SCD's. Ambulate. DISPOSITION Skilled care or inpatient rehab recommended. Case Management consulted. Patient insists on being discharged to home. She is not interested in skilled care or inpatient rehabilitation. She does not wish to have home health nursing for therapy services. Discharge to home. Family Medicine follow-up with Dr. Howell. . Total time spent on discharge = 35 min. This includes examination of the patient, discharge planning, medication reconciliation, and communication with other providers. . Discharge Instructions Date of Service Jan 23, 2017. Admission Reason for Admission: fall, back pain . Discharge Discharge Diagnosis / Problem: back pain due to compression fracture of L5 backbone Discharge Goals Goal(s): Decrease discomfort, Improve function Activity Recommendations Activity Limitations: as noted below Lifting Limitations: no more than 10 pounds Shower/Bathe: no limitations . Instructions / Follow-Up Instructions / Follow-Up APPOINTMENTS: FAMILY MEDICINE 01/30/2017 3:10 PM Christiano Howell MD INSTRUCTIONS: You have a compression fracture (collapsed back bone) in your lower back. No heavy lifting. Take the following for pain: Extra Strength Tylenol 2 pills every 8 hours as needed for moderate pain. Tramadol (Ultram) 50 mg every 8 hours as needed for severe pain. Take calcium with vitamin D twice a day to keep your bones strong. [Prescriptions sent to [facility] in [place].] Continue oxygen as before. Please do not smoke. NEVER smoke when oxygen is being used. Seek medical attention if you have: * temperature above 101 * chest pain or trouble breathing * abdominal pain, nausea, vomiting * diarrhea, dark stools or bloody stools * any unanswered questions or concerns Call 911 if symptoms are severe. Call if you have any questions or problems. My cell # is [phone]. You can also reach a [facility] hospitalist on duty at [facility] 24 hours a day by calling [phone]. Please take good care of yourself. Richie Hopkins . Current Hospital Diet Patient's current hospital diet: AHA Diet (Heart Healthy), Diabetes Type 2 Diet Discharge Diet Recommended Diet: AHA Diet (Heart Healthy) Pending Studies Studies pending at discharge: no Medical Emergencies . Who to Call and When: Medical Emergencies: If at any time you feel your situation is an emergency, please call 911 immediately. . Non-Emergent Contact Non-Emergency issues call your: Primary Care Provider, Hospital Doctor . . "Provider Documentation" section prepared by Richie Hopkins. . VTE Core Measure Inpt VTE Proph given/why not?: SCD's [place] Drug Monitoring Program Search Results: patient reviewed within database, no issues identified . Additional Copies To Christiano Howell M.D.
== END 2017-01-23 14:22 | disposition home or self-care (01) | DRG 543 ==
LOC: EDBD 10:45 → C.EDB 10:46 → UNDOADMIN 14:00 → C.2T 14:00 → ENRESERV 14:27 → C.MS2W 01-20 12:27 → C.2T 01-20 12:27 → ENRESERV 01-20 12:38
PROVIDERS: ADMIT Hospitalist; ATTEND Hospitalist
DX: M80.08XA Age-related osteoporosis with current pathological fracture, vertebra(e), initial encounter for fracture (principal); D61.818 Other pancytopenia; J96.11 Chronic respiratory failure with hypoxia; N18.3 Chronic kidney disease, stage 3 (moderate); J44.9 Chronic obstructive pulmonary disease, unspecified; F32.9 Major depressive disorder, single episode, unspecified; D46.9 Myelodysplastic syndrome, unspecified; E11.21 Type 2 diabetes mellitus with diabetic nephropathy; E78.5 Hyperlipidemia, unspecified; F41.1 Generalized anxiety disorder; E03.9 Hypothyroidism, unspecified; M81.0 Age-related osteoporosis without current pathological fracture; I73.00 Raynaud's syndrome without gangrene; F17.200 Nicotine dependence, unspecified, uncomplicated; E55.9 Vitamin D deficiency, unspecified; W19.XXXA Unspecified fall, initial encounter; Y92.009 Unspecified place in unspecified non-institutional (private) residence as the place of occurrence of the external cause

== ENCOUNTER 2017-04-30 09:13 | Emergency (ER) | payer OTHER ==
[~2017-04-30] VITALS: Ht 162.6 cm; Wt 60.6 kg
[~2017-04-30 09:13] MED LIST changes: +ACET-1138 PO; -ALBUAER19 INH; -AMOX1TAB43 PO; +CALC200T PO; -DSY50 PO; +FLVHFA110 INH; -LEVO100T PO; +LEVO88TA3 PO; +MIRT15TA PO; -NCDT14 TD; -PRD20 PO; +TRAM-10 PO; +TRAZ1TAB16 PO; +VNTHFA/IN INH; -ZTHM250 PO
[2017-04-30] MEDS ORDERED: SODIUM CHLORIDE 0.9% 1000ML 1,000 ML IV ONE ×2 (09:31→10:00)
[2017-04-30] MEDS ORDERED: PIPERACILLIN/TAZOBACTAM 4.5 GM/100ML D5W IV STA (09:36)
--- NOTE | 2017-04-30 09:39 | EMERGENCY ROOM VISIT NOTE ---
History Report prepared by Shemar: Jemma Aviles Under the Supervision of: Dr. Suhas Puente M.D. First contact with patient: 09:31 Chief Complaint: ALTERED MENTAL STATUS Stated Complaint: FALL/AMS Nursing Triage Summary: Patient arrived via ALS from home. Per EMS report the patient fell multiple times out of bed, the son helped her back into bed the third time and called 911. Patient is altered per son. Patient was covered in stool when ems arrived on scene. No head trama noticed. Breathing is labored. Rhonchi noted. Generalized ecchymosis all over. No edema. Per ems report pupils 4mm, non reactive. 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 Per EMS, the patient lives at home with her son. He stated that the patient had fallen multiple times this morning. The patient is confused. She denies being in any pain. EMS reports that she had a fever en route and intermittent episodes with a systolic BP of 80. Source of History: patient, EMS History Limited By: AMS Onset: REMOTE SENSING ANALYST Position: other (global) Quality: other (altered) Timing: constant Associated Symptoms: + fevers Review of Systems ROS is limited secondary to the patient's AMS. Past Medical & Surgical Medical Problems: (1) Cholelithiasis (2) CKD (chronic kidney disease), stage III (3) COPD, moderate (4) Depression (5) DM type 2 (diabetes mellitus, type 2) (6) Dyslipidemia (7) Generalized anxiety disorder (8) History of renal stone (9) Hypotension (10) Hypothyroidism (11) Myelodysplastic disease (12) Osteoporosis (13) Pancytopenia (14) Raynauds syndrome (15) Sepsis (16) Tobacco abuse (17) Vitamin D deficiency Surgical Problems: (1) History of cataract surgery (2) History of open reduction and internal fixation (ORIF) procedure (3) History of parotid gland removal (4) Hx of tubal ligation Family History Heart disease FATHER Stroke MOTHER Social History Smoking Status: Unknown if Ever Smoked Alcohol Use: none Housing Status: lives with family, correction Current/Historical Medications Scheduled Alprazolam (Alprazolam), 0.5 MG PO TID Calcium Carbonate-Vitamin D (Oscal 500/200 D-3), 1 TAB PO BID Fluticasone Propionate (Flovent Hfa), 2 PUFFS INH BID Levothyroxine Sodium (Levothyroxine Sodium), 1 TAB PO DAILY Mirtazapine (Remeron), 1 TAB PO HS Multiple Vitamin (Multivitamin), 1 TAB PO DAILY Paroxetine (Paroxetine HCl), 30 MG PO DAILY Prednisone (Prednisone), 5 MG PO DAILY Simvastatin (Zocor), 40 MG PO QPM Tiotropium [place] (Spiriva Handihaler), 18 MCG INH DAILY Trazodone Hcl (Desyrel), 50 MG PO HS Scheduled PRN Acetaminophen (Tylenol Extra Strength), 2 TAB PO Q8 PRN for moderate pain Albuterol Hfa (Ventolin Hfa), 2-4 PUFFS INH Q6H PRN for SOB/Wheezing Albuterol Sulf (Albuterol Sulfate), 1 DOSE INH Q4 PRN for Wheezing Tramadol (Ultram), 50 MG PO Q8 PRN for severe pain Allergies Coded Allergies: Niacin (Verified Allergy, Unknown, 01/18/17) Physical Exam Vital Signs Date Time Temp Pulse Resp B/P (MAP) Pulse Ox O2 Delivery O2 Flow Rate FiO2 04/30/17 13:01 0 04/30/17 12:35 0 04/30/17 12:25 0 04/30/17 12:25 0 04/30/17 12:05 83 16 37/31 100 BiPAP 04/30/17 12:00 90 40/28 100 BiPAP 04/30/17 11:59 106 62/41 100 BiPAP 04/30/17 11:38 136 100 100 04/30/17 11:37 117 26 82/43 100 BiPAP 04/30/17 11:25 118 82/43 100 BiPAP 04/30/17 11:19 117 56/42 100 BiPAP 04/30/17 11:10 39.3 04/30/17 10:31 136 30 132/115 99 BiPAP 04/30/17 09:59 131 34 89/52 98 Non-Rebreather 15.0 04/30/17 09:59 98 Non-Rebreather 15.0 04/30/17 09:28 130 04/30/17 09:26 37.2 136 34 80/61 95 Nasal Cannula 6.0 04/30/17 09:26 95 Nasal Cannula 6.0 Physical Exam GENERAL: Patient awake, alert, but confused, disoriented. Patient follows commands minimally. Patient appears toxic. Patient is adequately hydrated and well-nourished. SKIN: No erythema, pallor, cyanosis or rash HEENT: Normal head, pupils equal, reactive to light and accommodation. Ears normal. Oral cavity and posterior pharynx appear normal. Neck: Without adenopathy, no neck vein distention. LUNGS: Breathing rapidly, tachypneic, labored breathing. No wheezes, no rales, no rhonchi. HEART: Rapid regular rate. No murmurs. No gallops. No rubs ABDOMEN: No masses, no rebound, no hepatomegaly or splenomegaly. BACK: Large bruise on left mid-back. EXTREMITIES: Multiple bruises on all 4 extremities. No pedal or pretibial edema. No calf or thigh tenderness. NEUROLOGIC: Cranial nerves II-XII within normal limits. No gross motor sensory function deficits. Medical Decision & Procedures ER Provider Diagnostic Interpretation: Radiology results as stated below per my review and radiologist interpretation: CHEST ONE VIEW PORTABLE CLINICAL HISTORY: 86 years-old Female presenting with Sepsis. TECHNIQUE: Portable upright AP view of the chest was obtained. COMPARISON: 01/18/2017. FINDINGS: Atherosclerosis of aortic arch. Cardiac silhouette top normal in size. Prominence of the right hilum, likely vascular in origin. Heterogeneous prominent lung markings as on prior exam. No new focal infiltrate. No large effusion or pneumothorax. Osseous structures normal. Upper abdomen normal. IMPRESSION: 1. Heterogeneous and prominent lung markings relate to emphysema. No new focal infiltrate. Electronically signed by: Tiago Lucero M.D. 04/30/2017 10:48 AM Dictated Date/Time: 04/30/2017 10:45 AM Laboratory Results 04/30/17 09:40 04/30/17 09:40 Test 04/30/17 09:40 04/30/17 09:52 04/30/17 11:30 Red Blood Count 2.48 M/uL (4.2-5.4) Mean Corpuscular Volume 112.1 fL (80-100) Mean Corpuscular Hemoglobin 36.7 pg (25-34) Mean Corpuscular Hemoglobin Concent 32.7 g/dl (32-36) RDW Standard Deviation 56.9 fL (36.4-46.3) RDW Coefficient of Variation 14.1 % (11.5-14.5) Platelet Estimate SIGNIFIC DECREASED Prothrombin Time 10.8 SECONDS (9.0-12.0) Prothromb Time International Ratio 1.0 (0.9-1.1) Activated Partial Thromboplast Time 26.2 SECONDS (21.0-31.0) Partial Thromboplastin Ratio 1.0 Anion Gap 10.0 mmol/L (3-11) Est Creatinine Clear Calc Drug Dose 20.9 ml/min Estimated GFR () 31.3 Estimated GFR (Non- 27.0 BUN/Creatinine Ratio 11.5 (10-20) Calcium Level 8.9 mg/dl (8.5-10.1) Total Bilirubin 0.8 mg/dl (0.2-1) Aspartate Amino Transf (AST/SGOT) 60 U/L (15-37) Alanine Aminotransferase (ALT/SGPT) 20 U/L (12-78) Alkaline Phosphatase 42 U/L (45-117) Troponin I 14.100 ng/ml (0-0.045) Total Protein 6.3 gm/dl (6.4-8.2) Albumin 3.2 gm/dl (3.4-5.0) Globulin 3.1 gm/dl (2.5-4.0) Albumin/Globulin Ratio 1.0 (0.9-2) Bedside Lactic Acid Venous 6.29 mmol/L (0.90-1.70) Urine Color YELLOW Urine Appearance CLEAR (CLEAR) Urine pH 6.5 (4.5-7.5) Urine Specific [place] 1.017 (1.000-1.030) Urine Protein TRACE (NEG) Urine Glucose (UA) NEG (NEG) Urine Ketones NEG (NEG) Urine Occult Blood TRACE (NEG) Urine Nitrite POS (NEG) Urine Bilirubin NEG (NEG) Urine Urobilinogen NEG (NEG) Urine Leukocyte Esterase NEG (NEG) Urine WBC (Auto) 0 /hpf (0-5) Urine RBC (Auto) 0-4 /hpf (0-4) Urine Hyaline Casts (Auto) 1-5 /lpf (0-5) Urine Epithelial Cells (Auto) 10-20 /lpf (0-5) Urine Bacteria (Auto) 4+ (NEG) Laboratory results as stated above per my review. Medications Administered Medications (Trade) Dose Ordered Sig/Kathryn Route Start Time Stop Time Status Last Admin Dose Admin Sodium Chloride 1,000 ml @ 999 mls/hr Q1H1M ONCE IV 04/30/17 09:31 04/30/17 10:31 DC 04/30/17 09:31 999 MLS/HR Piperacillin Sod/ Tazobactam Sod (Zosyn Iv) 4.5 gm NOW STAT IV 04/30/17 09:36 04/30/17 09:39 DC 04/30/17 09:36 4.5 GM Levofloxacin (Levaquin / D5W) 750 mg NOW ONCE IV 04/30/17 09:45 04/30/17 09:46 DC 04/30/17 09:45 750 MG Sodium Chloride 1,000 ml @ 999 mls/hr Q1H1M ONCE IV 04/30/17 10:00 04/30/17 11:00 DC 04/30/17 10:00 999 MLS/HR Miscellaneous Information (Nursing Verbal Med Order) 1 ea ONE ONCE N/A 04/30/17 12:00 04/30/17 14:07 DC 04/30/17 12:05 1 EA ECG Indication: altered mental status Rate (beats per minute): 130 Rhythm: sinus tachycardia Findings: no ectopy, other (ST abnormality) ED Course 0931: Past medical records reviewed. The patient was evaluated in room B6. A complete history and physical examination was performed. 0931: NSS 1000 ml @ 999 mls/hr IV 0936: Zosyn 4.5 gm IV 0945: Levofloxacin 750 mg IV 0949: I reassessed the patient. She was placed on a non-rebreather. 1000: NSS 1000 ml @ 999 mls/hr IV 1016: I spoke with the patient's family at the bedside. The patient is not to be intubated and is a DNR. She was moved to room B1. 1037: Upon reevaluation the patient's BP and pulse ox have improved. She is now on BiPAP. 1044: I discussed the patient's case with Dr. Villarreal, the grocery clerk. He will come to the ED to evaluate the patient for further management. 1100: I spoke with Dr. Ruiz. We discussed the patient's case. The patient will be evaluated by the [facility] for further management. 1116: The nurse paged me to the patient's bedside as the patient has become less responsive. 1129: I spoke with the patient's family regarding her results and treatment plan. They would like to proceed with more aggressive management, but still refuse intubation or CPR. 1150: I reassessed the patient at this time and updated family. 1205: I went to reassess the patient and both the grocery clerk and hospitalist were at the bedside. 1225: Time of was called. Medical Decision Differential diagnoses includes multiple falls, rib fractures, pneumonia, sepsis , CVA, TIA. The patient was brought here via medics after experiencing a fall this morning. The patient was covered in feces. The patient is unable to provide any history. Patient does have a fever and appears septic. Multiple labs, EKG, imaging were obtained. Please see above. The patient had significant respiratory distress. She initially was on nasal cannula switched to a nonrebreather and ultimately switched to BiPAP. I discussed care with family and they did not want the patient on a respirator or to receive any CPR. This had been discussed this with the patient prior to her recent illness. The patient has myelodysplastic syndrome and her white count was extremely low today. Troponin and lactic acid are markedly elevated. Patient remained hypoxic and hypotensive. The patient was also replaced on Levophed. Her level of consciousness declined. The patient experienced agonal respirations prior to complete cessation of respirations and pulse. Family members were in attendance during her decline. I had already informed the family multiple times regarding her status. I believe the patient is septic but the exact source remains unknown. She also had significant elevation of troponin indicating some cardiac damage. The patient was about to have a CT of her chest and head but she prior to those imaging studies. Medication Reconcilliation Current Medication List: was personally reviewed by me Blood Pressure Screening Patient's blood pressure: Low blood pressure Consults Time Called: 1039 Consulting Physician: Dr. Villarreal Returned Call: 1040 I discussed the patient's case with Dr. Villarreal, the grocery clerk. He will come to the ED to evaluate the patient for further management. Additional Consults: Time Called: 1051 Consulted Physician: Dr. Ruiz Returned Call: 1100 Additional Comments: I spoke with Dr. Ruiz. We discussed the patient's case. The patient will be evaluated by the [facility] for further management. Impression Primary Impression: Sepsis Additional Impressions: Cardiopulmonary arrest Critical Care I have personally spent greater than 120 minutes of critical care time in the direct management of this patient. This includes bedside care, interpretation of diagnostic studies, and testing, discussion with consultants, patient, and family members, and other required patient management activities. This 120 minutes is in excess of all separately billable procedures. Scribe Attestation The scribe's documentation has been prepared under my direction and personally reviewed by me in its entirety. I confirm that the note above accurately reflects all work, treatment, procedures, and medical decision making performed by me. Departure Information Dispostion Referrals Christiano Howell M.D. (PCP) Patient Instructions My [facility] Problem Qualifiers Primary Impression: Sepsis Sepsis type: sepsis due to unspecified organism Qualified Codes: A41.9 - Sepsis, unspecified organism
[2017-04-30] MEDS ORDERED: LEVAQUIN 750MG / 150ML D5W IV ONE (09:45)
[2017-04-30 09:57] VITALS: Ht 162.6 cm; Wt 60.6 kg
[2017-04-30 09:59] VITALS: O2SAT 98
[2017-04-30] MEDS ORDERED: RAPID SEQUENCE INDUCTION BAG ONE (10:17)
[2017-04-30 10:28] LABS: PROTHROMBIN TIME (PATIENT) 10.8 SECONDS (9.0-12.0)
[2017-04-30 10:40] LABS: BUN/CREATININE RATIO 11.5 (10-20); CALCIUM 8.9 mg/dl (8.5-10.1); CREATININE 1.7 mg/dl (0.60-1.20); POTASSIUM 4.4 mmol/L (3.5-5.1)
--- NOTE | 2017-04-30 10:49 | DIAGNOSTIC IMAGING REPORT ---
CHEST ONE VIEW PORTABLE CLINICAL HISTORY: 86 years-old Female presenting with Sepsis. TECHNIQUE: Portable upright AP view of the chest was obtained. COMPARISON: 01/18/2017. FINDINGS: Atherosclerosis of aortic arch. Cardiac silhouette top normal in size. Prominence of the right hilum, likely vascular in origin. Heterogeneous prominent lung markings as on prior exam. No new focal infiltrate. No large effusion or pneumothorax. Osseous structures normal. Upper abdomen normal. IMPRESSION: 1. Heterogeneous and prominent lung markings relate to emphysema. No new focal infiltrate. Electronically signed by: Tiago Lucero M.D. 04/30/2017 10:48 AM Dictated Date/Time: 04/30/2017 10:45 AM
[2017-04-30 10:51] LABS: HEMATOCRIT 27.8 % (37-47); MEAN CELL VOLUME 112.1 fL (80-100); MEAN CORPUSCULAR HEMOGLOBIN 36.7 pg (25-34); MEAN CORPUSCULAR HGB CONC 32.7 g/dl (32-36); PLATELET COUNT 11 K/uL (130-400); RED BLOOD COUNT 2.48 M/uL (4.2-5.4); WHITE BLOOD COUNT 0.16 K/uL (4.8-10.8)
[2017-04-30 10:56] LABS: PLT ESTIMATE SIGNIFIC DECREASED
[2017-04-30] MEDS ORDERED: OPTIRAY 320 IV PRN (11:00)
[2017-04-30 11:10] VITALS: TEMP 39.3
[2017-04-30 11:38] VITALS: PULSE 136; O2SAT 100
[2017-04-30] MEDS ORDERED: NOREPINEPHRINE BIT INJ 8 MG in DEXTROSE 5% 500ML 500 ML IV PRN (11:42)
[2017-04-30] MEDS ORDERED: HYDROCORTISONE SOD SUCCINATE 100 MG/2 ML VIAL IV STA (11:51)
[2017-04-30] MEDS ORDERED: HYDROCORTISONE SOD SUCCINATE 100 MG/2 ML VIAL ONE (11:52)
[2017-04-30 11:56] LABS: URINE APPEARANCE CLEAR (CLEAR); URINE BILIRUBIN NEG (NEG); URINE COLOR YELLOW; URINE NITRITE POS (NEG); URINE PH 6.5 (4.5-7.5); URINE SPECIFIC GRAVITY 1.017 (1.000-1.030); UROBILINOGEN NEG (NEG); ZZURINE CULT IF INDIC CATH YES
[2017-04-30] MEDS ORDERED: NURSING VERBAL MED ORDER ONE (12:00)
[2017-04-30 12:02] LABS: MANUAL MICROSCOPIC REQUIRED? NO; REVIEW REQ? NO
[2017-04-30 12:05] VITALS: BP 37/31; O2SAT 100
[2017-04-30 13:01] VITALS: PULSE 0
--- NOTE | 2017-04-30 21:42 | Progress Note ---
Progress Note Date of Service Apr 30, 2017. Progress Note delayed entry date of service as noted above called by Dr. Puente for patient's admission to the ICU; according to him, he already discussed case with Dr. Jaimes [employer]ator i was informed patient is DNR on exam, family at bedside patient's BP noted to be systolic 80s, patient on a bipap, not responsive 3rd NSS ordered, RN already hanging Levophed per Dr. Puente's order ordered RN to administer Hydrocortisone 100mg IV as patient on chronic prednisone and is likely having Shock from Sepsis and possible Cardiogenic etiology as well discussed with family re: patient's critical state and possible Shock from Sepsis and Cardiogenic source Dr. Jaimes arrived, patient's BP was continuing to decline- systolic 30s despite being on Levophed and prognosis is very poor, he discussed goals of care with family family decided not to pursue further treatment apnea noted, family made aware that patient has ceased to breathe Dr. Puente made aware Ellis Ruiz MD
== END 2017-04-30 13:00 | disposition expired ==
LOC: C.EDB 09:13 → EDBD 09:13 → C.EDA 13:00 → CANBEDREQ 13:12
DX: I46.9 Cardiac arrest, cause unspecified (principal); A41.9 Sepsis, unspecified organism; R00.0 Tachycardia, unspecified; E11.9 Type 2 diabetes mellitus without complications; N18.3 Chronic kidney disease, stage 3 (moderate); E78.5 Hyperlipidemia, unspecified; F41.1 Generalized anxiety disorder; E03.9 Hypothyroidism, unspecified; M81.0 Age-related osteoporosis without current pathological fracture; F17.200 Nicotine dependence, unspecified, uncomplicated; Z98.51 Tubal ligation status; Z98.49 Cataract extraction status, unspecified eye; Z98.890 Other specified postprocedural states; Z79.899 Other long term (current) drug therapy; Z88.8 Allergy status to other drugs, medicaments and biological substances; Z82.49 Family history of ischemic heart disease and other diseases of the circulatory system; Z82.3 Family history of stroke